=== PATIENT | male | born 1940 | race Caucasian/White ===

== ENCOUNTER → 2016-12-04 | Outpatient (CLI) | payer MEDICARE, OTHER ==
[2016-12-04 11:10] LABS: ANION GAP 9 (5-19); BLOOD UREA NITROGEN 16 mg/dL (7-20); CALCIUM 9.6 mg/dL (8.4-10.2); CARBON DIOXIDE 33 mmol/L (22-30); CHLORIDE 101 mmol/L (98-107); CHOLESTEROL 138.96 mg/dL (0-200); Direct HDL 56 mg/dL (>40); GLUCOSE 90 mg/dL (75-110); MAGNESIUM 2.1 mg/dL (1.6-2.3); SODIUM 143.1 mmol/L (137-145); TRIGLYCERIDES 76 mg/dL (<150)
[2016-12-04 11:21] LABS: DIRECT LDL 59 mg/dL (<100)
== END ==
LOC: OD 09:35
PROVIDERS: ATTEND Internal Medicine Cardiovascular Disease
DX: E78.00 Pure hypercholesterolemia, unspecified (principal); R73.01 Impaired fasting glucose; Z79.899 Other long term (current) drug therapy
CPT/HCPCS: 36415; 80048; 80061; 83036; 83735

== ENCOUNTER → 2017-09-18 | Outpatient (CLI) | payer MEDICARE, OTHER ==
[2017-09-18 14:29] LABS: ALANINE AMINOTRANSFERASE 34 U/L (21-72); ALBUMIN 3.8 g/dL (3.5-5.0); ALKALINE PHOSPHATASE 65 U/L (38-126); ANION GAP 13 (5-19); ASPARTATE AMINO TRANSFERASE 29 U/L (17-59); BILIRUBIN,DIRECT 0.4 mg/dL (0.0-0.4); BILIRUBIN,TOTAL 1.4 mg/dL (0.2-1.3); BLOOD UREA NITROGEN 16 mg/dL (7-20); CALCIUM 9.8 mg/dL (8.4-10.2); CARBON DIOXIDE 29 mmol/L (22-30); CHLORIDE 100 mmol/L (98-107); CHOLESTEROL 142.02 mg/dL (0-200); GLUCOSE 67 mg/dL (75-110); MAGNESIUM 2.1 mg/dL (1.6-2.3); POTASSIUM 4.3 mmol/L (3.6-5.0); SODIUM 141.9 mmol/L (137-145); TOTAL PROTEIN 6.1 g/dL (6.3-8.2); TRIGLYCERIDES 88 mg/dL (<150)
[2017-09-18 14:39] LABS: DIRECT LDL 82 mg/dL (<100)
== END ==
LOC: OD 12:38
PROVIDERS: ATTEND Internal Medicine Cardiovascular Disease
DX: E78.00 Pure hypercholesterolemia, unspecified (principal); Z79.899 Other long term (current) drug therapy
CPT/HCPCS: 36415; 80048; 80061; 80076; 83036; 83735

== ENCOUNTER 2017-12-13 07:15 | Inpatient (IN) | payer MEDICARE, OTHER ==
[2017-12-13 07:39] LABS: ABSOLUTE BASOPHILS # (AUTO) 0.1 10^3/uL (0.0-0.2); ABSOLUTE EOSINOPHILS # (AUTO) 0.1 10^3/uL (0.0-0.6); ABSOLUTE LYMPHOCYTES (AUTO) 1.8 10^3/uL (0.5-4.7); ABSOLUTE MONOCYTES (AUTO) 0.4 10^3/uL (0.1-1.4); BASOPHILS % (AUTO) 0.6 % (0-2); EOSINOPHILS % (AUTO) 0.9 % (0-6); HEMATOCRIT 42.8 % (37.9-51.0); HEMOGLOBIN 13.7 g/dL (13.5-17.0); LYMPHOCYTES % (AUTO) 14.6 % (13-45); MEAN CORPUSCULAR HGB CONC 32.1 g/dL (32.0-36.0); MEAN CORPUSCULAR VOLUME 87 fl (80-97); MONOCYTES % (AUTO) 3.2 % (3-13); PLATELET COUNT 235 10^3/uL (150-450); RED BLOOD COUNT 4.92 10^6/uL (4.35-5.55); RED CELL DISTRIBUTION WIDTH 14.4 % (11.5-14.0); SEGMENTED NEUTROPHILS % (AUTO) 80.7 % (42-78); TOTAL CELLS COUNTED % (AUTO) 100 %; WHITE BLOOD COUNT 12.4 10^3/uL (4.0-10.5)
[2017-12-13] MEDS ORDERED: IPRATROPIUM/ALBUTEROL 0.5-2.5 MG/3 ML AMPUL NEB ONE ×2 (07:50→07:54)
[2017-12-13] MEDS ORDERED: LORAZEPAM INJ 2 MG/1 ML VIAL IV ONE (07:52)
--- NOTE | 2017-12-13 07:52 | ER Document Report ---
ED General - General Chief Complaint: Breathing Difficulty Stated Complaint: SHORTNESS OF BREATH Time Seen by Provider: 12/13/17 07:25 Mode of Arrival: Medic Information source: Patient, ON LICENSE OF [facility] Records Notes: 77-year-old male history of CHF COPD presents with complaints of shortness of breath worsening over the past few days. Patient denies any productivity to cough notes he has had multiple similar episodes in the past. Patient found by EMS satting 86% on room air shaking wheezing. Patient was given 2 DuoNeb's 125 mg Solu-Medrol TRAVEL OUTSIDE OF THE [place] IN LAST 30 DAYS: No - HPI Onset: Other Onset/Duration: Persistent, Worse Quality of pain: No pain Severity: Severe Pain Level: Denies Associated symptoms: Nonproductive cough, Shortness of breath Exacerbated by: Coughing, Deep breathing Relieved by: Denies Similar symptoms previously: Yes Recently seen / treated by doctor: Yes - Related Data Allergies/Adverse Reactions: No Known Allergies Allergy (Verified 12/13/17 07:44) Past Medical History - Social History Smoking Status: Former Smoker Cigarette use (# per day): No Chew tobacco use (# tins/day): No Smoking Education Provided: No Frequency of alcohol use: Rare Drug Abuse: None Family History: COPD Patient has suicidal ideation: No Patient has homicidal ideation: No - Past Medical History Cardiac Medical History: Reports: Hx Congestive Heart Failure, Hx Coronary Artery Disease, Hx Heart Attack, Hx Hypercholesterolemia, Hx Hypertension Pulmonary Medical History: Reports: Hx COPD, Hx Respiratory Failure - Half a liter continuously Denies: Hx Tuberculosis Renal/ Medical History: Denies: Hx Peritoneal Dialysis GI Medical History: Reports: Hx Gastroesophageal Reflux Disease, Hx Hiatal Hernia Psychiatric Medical History: Denies: Hx Depression Past Surgical History: Reports: Hx Coronary Artery Bypass Graft, Hx Orthopedic Surgery - 3 ruptured herniated disc in low back and 2 surgeries - Immunizations Immunizations up to date: Yes Hx Diphtheria, Pertussis, Tetanus Vaccination: No Hx Pneumococcal Vaccination: 06/08/16 Review of Systems - Review of Systems Notes: REVIEW OF SYSTEMS: CONSTITUTIONAL : Denies fever, chills, or sweats. Denies recent illness. EENT: Denies eye, ear, throat, or mouth pain or symptoms. Denies nasal or sinus congestion or discharge. Denies throat, tongue, or mouth swelling or difficulty swallowing. CARDIOVASCULAR: Denies chest pain. Denies palpitations or racing or irregular heart beat. Denies ankle edema. RESPIRATORY: Admits shortness of breath difficulty GASTROINTESTINAL: Denies abdominal pain or distention. Denies nausea, vomiting , or diarrhea. Denies blood in vomitus, stools, or per rectum. Denies black, tarry stools. Denies constipation. GENITOURINARY: Denies difficulty urinating, painful urination, burning, frequency, blood in urine, or discharge. MUSCULOSKELETAL: Denies back or neck pain or stiffness. Denies joint pain or swelling. SKIN: Denies rash, lesions or sores. HEMATOLOGIC : Denies easy bruising or bleeding. LYMPHATIC: Denies swollen, enlarged glands. NEUROLOGICAL: Denies confusion or altered mental status. Denies passing out or loss of consciousness. Denies dizziness or lightheadedness. Denies headache. Denies weakness or paralysis or loss of use of either side. Denies problems with gait or speech. Denies sensory loss, numbness, or tingling. Denies seizures. PSYCHIATRIC: Denies anxiety or stress. Denies depression, suicidal ideation, or homicidal ideation. ALL OTHER SYSTEMS REVIEWED AND NEGATIVE. Dictation was performed using [employer] voice recognition software PHYSICAL EXAMINATION: GENERAL: Well-appearing, well-nourished and in significant respiratory distress HEAD: Atraumatic, normocephalic. EYES: Pupils equal round and reactive to light, extraocular movements intact, sclera anicteric, conjunctiva are normal. ENT: Nares patent, oropharynx clear without exudates. Moist mucous membranes. NECK: Normal range of motion, supple without lymphadenopathy LUNGS: Extremely tachypneic HEART: Tachycardic ABDOMEN: Soft, nontender, nondistended abdomen. No guarding, no rebound. No masses appreciated. Musculoskeletal: +1 pitting edema lower extremities NEUROLOGICAL: Cranial nerves grossly intact. Normal speech, normal gait. Normal sensory, motor exams PSYCH: Normal mood, normal affect. SKIN: Warm, Dry, normal turgor, no rashes or lesions noted. Physical Exam - Vital signs Vitals: Resp Pulse Ox 47 H 91 L 12/13/17 07:19 12/13/17 07:19 Course - Re-evaluation Re-evalutation: 12/13/17 07:54 Duo nebs ordered, patient will be given Ativan for initiating, BiPAP immediately ordered, have high suspicion for respiratory failure 12/13/17 08:53 Patient's imaging presentation is most consistent with bilateral pneumonias, he will be started on antibiotics, ABG is pending still, patient looks much better on the BiPAP, and will be left on such. Patient will be admitted to the hospitalist service to the IMCU - Vital Signs Vital signs: Temp Pulse Resp BP Pulse Ox 98.1 F 40 H 117/95 H 98 12/13/17 07:43 12/13/17 08:00 12/13/17 08:00 12/13/17 08:00 - Laboratory Result Diagrams: 12/13/17 07:24 12/13/17 07:24 Laboratory results interpreted by me: 12/13/17 12/13/17 07:24 07:24 WBC 12.4 H RDW 14.4 H Seg Neutrophils % 80.7 H Absolute Neutrophils 10.0 H Carbon Dioxide 36 H Creatine Kinase 27 L - Diagnostic Test Radiology reviewed: Image reviewed - Bilateral lower lobe pneumonia, Reports reviewed - EKG Interpretation by Me EKG shows normal: Nichols, Intervals, QRS Complexes Rate: Tachycardia When compared to previous EKG there are: Changes noted - Patient is more tachycardic now than he was on prior EKG Critical Care Note - Critical Care Note Total time excluding time spent on procedures (mins): 39 Comments: 39 minutes of critical care time spent in direct contact evaluating and reevaluating the patient, treating symptoms, reviewing labs and studies and speaking with consultants excluding any procedures Discharge - Discharge Clinical Impression: Acute exacerbation of chronic obstructive pulmonary disease (COPD) Pneumonia Qualifiers: Pneumonia type: due to unspecified organism Laterality: bilateral Lung location : lower lobe of lung Qualified Code(s): J18.1 - Lobar pneumonia, unspecified organism Acute and chronic respiratory failure Qualifiers: Respiratory failure complication: hypoxia and hypercapnia Qualified Code(s): J96.21 - Acute and chronic respiratory failure with hypoxia; J96.22 - Acute and chronic respiratory failure with hypercapnia; J96.22 - Acute and chronic respiratory failure with hypercapnia; J96.22 - Acute and chronic respiratory failure with hypercapnia Condition: Stable Disposition: ADMITTED INPATIENT Admitting Provider: Hospitalist Unit Admitted: [facility] Referrals: KALEN JEAN-BAPTISTE DO [Primary Care Provider] - Follow up as needed
[2017-12-13 07:57] LABS: ALANINE AMINOTRANSFERASE 33 U/L (21-72); ALKALINE PHOSPHATASE 70 U/L (38-126); ANION GAP 8 (5-19); ASPARTATE AMINO TRANSFERASE 25 U/L (17-59); BLOOD UREA NITROGEN 19 mg/dL (7-20); CALCIUM 9.6 mg/dL (8.4-10.2); CARBON DIOXIDE 36 mmol/L (22-30); CHLORIDE 100 mmol/L (98-107); GLUCOSE 108 mg/dL (75-110); POTASSIUM 4.1 mmol/L (3.6-5.0); SODIUM 143.5 mmol/L (137-145)
[2017-12-13 07:58] LABS: BILIRUBIN,DIRECT 0.2 mg/dL (0.0-0.4); CREATINE KINASE 27 U/L (55-170); TOTAL PROTEIN 6.3 g/dL (6.3-8.2)
[2017-12-13] MEDS: MAGNESIUM SULFATE/D5W 1 GM/100 ML RTUPB IV SCH ×2 (08:00→08:01)
[2017-12-13 08:09] LABS: CREATINE KINASE MB 0.55 ng/mL (<4.55); NT PRO BNP 257 pg/mL (<450)
[2017-12-13 08:10] LABS: TROPONIN I < 0.012 ng/mL
--- NOTE | 2017-12-13 08:28 | RADIOLOGY REPORT (SQ) ---
EXAM DESCRIPTION: CHEST SINGLE VIEW COMPLETED DATE/TIME: 12/13/2017 8:08 am REASON FOR STUDY: sob COMPARISON: 06/26/2016 NUMBER OF VIEWS: One view. TECHNIQUE: Single frontal radiographic image of the chest acquired. LIMITATIONS: None. FINDINGS: LUNGS AND PLEURA: Segmental airspace disease in the right lower lobe and middle lobe. 3 c m oval density in the mid left lung could represent fluid in the fissure, mass, or pneumonia. MEDIASTINUM AND HEART: Stable heart size and mediastinal structures. BONY STRUCTURES: No acute findings. HARDWARE: None. OTHER: No other significant finding. IMPRESSION: Bilateral pneumonia. Followup to resolution is recommended. TECHNICAL DOCUMENTATION: JOB ID: [id number] Reading location - IP/workstation name: [email or web address]
[2017-12-13] MEDS ORDERED: LEVOFLOXACIN 750 MG/D5W RTU 750 MG/150 ML RTUPB IV ONE (08:42)
[2017-12-13] MEDS ORDERED: MAGNESIUM HYDROXIDE SUSP 30 ML UDCUP PO PRN (09:17)
[2017-12-13] MEDS ORDERED: ACETAMINOPHEN 325 MG TABLET PO PRN (09:17)
[2017-12-13] MEDS ORDERED: ONDANSETRON HCL INJ/PF 4 MG/2 ML SDV IV PRN (09:17)
[2017-12-13] MEDS ORDERED: OXYCODONE-ACETAMINOPHEN 5-325 MG TABLET PO PRN (09:17)
--- NOTE | 2017-12-13 09:56 | PDOC H&P ---
History of Present Illness Admission Date/PCP: 12/13/17 08:52 KALEN JEAN-BAPTISTE DO Patient complains of: Shortness of breath History of Present Illness: BERYL ENNIS is a 77 year old male with O2 dep COPD who presented to the emergency department via EMS with shortness of breath for several days. Per EMS his O2 saturation was 86% on room air. When he arrived to the ED he was shaking, and wheezing. Apparently he was tachypneic and tachycardic to the point that he was placed on BiPAP. Consequently, his heart rate improved as well as his respiratory rate. His only complaint now is that he wants to sleep. He says he has not slept in about 2 days. He did not report chest pain or palpitations. Past Medical History Cardiac Medical History: Reports: Congestive Heart Failure, Coronary Artery Disease, Myocardial Infarction, Hyperlipidema, Hypertension Pulmonary Medical History: Reports: Chronic Obstructive Pulmonary Disease (COPD) , Respiratory Failure - Half a liter continuously Denies: Tuberculosis GI Medical History: Reports: Gastroesophageal Reflux Disease, Hiatal Hernia Psychiatric Medical History: Denies: Depression Past Surgical History Past Surgical History: Reports: Coronary Artery Bypass Graft, Orthopedic Surgery - 3 ruptured herniated disc in low back and 2 surgeries Social History Smoking Status: Former Smoker Frequency of Alcohol Use: Occasional Hx Recreational Drug Use: No Drugs: None Hx Prescription Drug Abuse: No - Advance Directive Resuscitation Status: Full Code Family History Family History: COPD Parental Family History Reviewed: No Children Family History Reviewed: No Sibling(s) Family History Reviewed.: No Medication/Allergy Home Medications: Aspirin [Aspirin 81 mg Chewable Tablet] 81 mg PO DAILY 07/06/12 Atorvastatin Calcium [Lipitor 40 mg Tablet] 40 mg PO QHS 03/08/14 Budesonide [Pulmicort Neb 0.5 mg/2 ml Ampul] 0.5 mg NEB RTQ12 #60 ampul.neb Ezetimibe [Zetia 10 mg Tablet] 10 mg PO QHS 10/08/15 Ipratropium [place] [Atrovent 0.02% Neb 0.5 mg/2.5 ml Ampul] 0.5 mg NEB RTQ4 vial.neb 10/20/15 Doxazosin Mesylate 4 mg PO DAILY 06/26/16 Levalbuterol HCl [Xopenex Neb 1.25 mg/3 ml Ampul] 1.25 mg NEB RTQ6 06/26/16 Telmisartan [Micardis 20 mg Tablet] 20 mg PO DAILY 06/26/16 Guaifenesin [Mucinex Sr 600 mg Tablet.sa] 600 mg PO Q12HP PRN #20 tablet.sa Levofloxacin [Levaquin 750 mg Tablet] 750 mg PO DAILY #4 tablet 06/28/16 Omeprazole 40 mg PO BIDACBS #60 capsule. 06/28/16 Prednisone [Deltasone 20 mg Tablet] 40 mg PO ASDIR #21 tablet 06/28/16 Allergies/Adverse Reactions: No Known Allergies Allergy (Verified 12/13/17 07:44) Review of Systems Constitutional: ABSENT: chills, fever(s) Cardiovascular: PRESENT: dyspnea on exertion. ABSENT: chest pain, edema, orthropnea, palpitations Respiratory: PRESENT: dyspnea. ABSENT: hemoptysis, sputum Gastrointestinal: ABSENT: abdominal pain, constipation, diarrhea, hematemesis, hematochezia, nausea, vomiting Neurological: ABSENT: abnormal gait, abnormal speech, confusion, dizziness, focal weakness, syncope Physical Exam Vital Signs: Temp Pulse Resp BP Pulse Ox 98.1 F 40 H 117/95 H 98 12/13/17 07:43 12/13/17 08:00 12/13/17 08:00 12/13/17 08:00 General appearance: PRESENT: mild distress, obese, other - Wearing BiPAP Head exam: PRESENT: atraumatic, normocephalic Eye exam: PRESENT: EOMI, PERRLA Respiratory exam: PRESENT: crackles, decreased breath sounds, unlabored. ABSENT : accessory muscle use, tachypnea Cardiovascular exam: PRESENT: RRR. ABSENT: diastolic murmur, rubs, systolic murmur GI/Abdominal exam: PRESENT: normal bowel sounds, soft. ABSENT: distended, guarding, mass, organolmegaly, rebound, tenderness Neurological exam: PRESENT: alert, awake, oriented to person, oriented to place , oriented to time, oriented to situation, CN II-XII grossly intact. ABSENT: motor sensory deficit Skin exam: PRESENT: dry, intact, warm. ABSENT: cyanosis, rash Results Impressions: Chest X-Ray 12/13/17 07:25 IMPRESSION: Bilateral pneumonia. Followup to resolution is recommended. Assessment & Plan - Diagnosis (1) Acute and chronic respiratory failure Qualifiers: Respiratory failure complication: hypoxia Qualified Code(s): J96.21 - Acute and chronic respiratory failure with hypoxia Is this a current diagnosis for this admission?: Yes Plan: Secondary to COPD exacerbation + pneumonia. Continue BiPAP for now. Check ABG. Pulmonary consult. He sees Dr Vivar. IV steroids, and inhaled bronchodilators. Continue antibiotics as well. (2) Acute exacerbation of chronic obstructive pulmonary disease (COPD) Is this a current diagnosis for this admission?: Yes Plan: see above (3) Coronary artery disease Qualifiers: Coronary Disease-Associated Artery/Lesion type: [place] artery [place] vs. transplanted heart: [place] heart Associated angina: without angina Qualified Code(s): I25.10 - Atherosclerotic heart disease of [place] coronary artery without angina pectoris Is this a current diagnosis for this admission?: Yes Plan: Stable. Continue to monitor. (4) Dysphagia, oropharyngeal phase Is this a current diagnosis for this admission?: Yes Plan: Aspiration precautions. Speech eval. (5) Full code status Is this a current diagnosis for this admission?: Yes (6) Hiatal hernia with GERD Is this a current diagnosis for this admission?: Yes Plan: Continue PPI - Time Time Spent: 50 to 70 Minutes Medications reviewed and adjusted accordingly: Yes Anticipated discharge: Home Within: within 72 hours - Inpatient Certification Based on my medical assessment, after consideration of the patient's comorbidities, presenting symptoms, or acuity I expect that the services needed warrant INPATIENT care.: Yes I certify that my determination is in accordance with my understanding of Medicare's requirements for reasonable and necessary INPATIENT services [42 CFR 412.3e].: Yes Medical Necessity: Need Close Monitoring Due to Risk of Patient Decompensation
[2017-12-13] MEDS ORDERED: CEFTRIAXONE 1 GM/D5W RTU 1 GM/50 ML RTUPB IV SCH (10:00)
[2017-12-13] MEDS ORDERED: AZITHROMYCIN 250 MG TABLET PO ONE (10:00)
--- NOTE | 2017-12-13 10:11 | EKG REPORT ---
SEVERITY:- ABNORMAL ECG - SINUS TACHYCARDIA BASELINE ARTIFACTS NOTED PROBABLE INFERIOR INFARCT, AGE INDETERMINATE : Confirmed by: Yocasta Camacho 13-Dec-2017 10:10:44
[2017-12-13] MEDS ORDERED: LANSOPRAZOLE 30 MG TAB.RAP.DR PO ONE (10:30)
[2017-12-13 11:09] LABS: ARTERIAL BLOOD BASE EXCESS 4.4 mmol/L; ARTERIAL BLOOD FIO2 60%; ARTERIAL BLOOD H2CO3 1.28 mmol/L (1.05-1.35); ARTERIAL BLOOD HCO3 28.9 mmol/L (20-26); ARTERIAL BLOOD O2 SATURATION 99.3 % (94-98); ARTERIAL BLOOD PCO2 42.6 mmHg (35-45); ARTERIAL BLOOD PH 7.45 (7.35-7.45); ARTERIAL BLOOD PO2 186.9 mmHg (80-100); ARTERIAL BLOOD TOTAL CO2 30.3 mmol/L (23-27)
[2017-12-13] MEDS: NORMAL SALINE 1000 ML 1,000 ML IV PRN (12:09)
[2017-12-13] MEDS: IPRATROPIUM/ALBUTEROL 0.5-2.5 MG/3 ML AMPUL NEB SCH ×3 (12:17→20:29)
[2017-12-13] MEDS: ENOXAPARIN SODIUM INJ 40 MG/0.4 ML DISP.SYRIN SUBCUT SCH (12:23)
[2017-12-13] MEDS: CEFTRIAXONE SODIUM 1,000 MG in NORMAL SALINE 100 ML IV SCH (12:24)
[2017-12-13] MEDS: DOCUSATE SODIUM 100 MG CAPSULE PO SCH ×2 (12:25→17:53)
[2017-12-13] MEDS ORDERED: METHYLPREDNISOLONE INJ 40 MG/1 ML SDV IV SCH ×2 (14:00)
[2017-12-13] MEDS ORDERED: METHYLPREDNISOLONE INJ 125 MG/2 ML SDV IV ONE (15:00)
[2017-12-13] MEDS: TAMSULOSIN HCL 0.4 MG CAP.SR.24H PO SCH (17:53)
--- NOTE | 2017-12-13 19:19 | PDOC CONSULTATION ---
Consultation Consult Date: 12/13/17 Attending physician:: CHASE MARIA Consult reason:: acute/chronic resp failure History of Present Illness Admission Date/PCP: 12/13/17 08:52 KALEN JEAN-BAPTISTE DO History of Present Illness: BERYL ENNIS is a 77 year old male with steroid dependent,O2 dep COPD who presented to the emergency department via EMS with shortness of breath for several days. Per EMS his O2 saturation was 86% on room air. When he arrived to the ED he was shaking, and wheezing. Apparently he was tachypneic and tachycardic to the point that he was placed on BiPAP. Consequently, his heart rate improved as well as his respiratory rate. His only complaint now is that he wants to sleep. He says he has not slept in about 2 days.He is well known to [facility] service has >80 py hx and occasionally attempts to smoke ;hh has history of non compliance.He states this exacerbation began with a lot of indigestion and heartburn Past Medical History Cardiac Medical History: Reports: Congestive Heart Failure, Coronary Artery Disease, Myocardial Infarction, Hyperlipidema, Hypertension Pulmonary Medical History: Reports: Chronic Obstructive Pulmonary Disease (COPD) , Respiratory Failure - Half a liter continuously Denies: Tuberculosis GI Medical History: Reports: Gastroesophageal Reflux Disease, Hiatal Hernia Psychiatric Medical History: Denies: Depression Past Surgical History Past Surgical History: Reports: Coronary Artery Bypass Graft, Orthopedic Surgery - 3 ruptured herniated disc in low back and 2 surgeries Social History Information Source: Patient, DrElsa Fox, [facility] Records Smoking Status: Former Smoker Cigarettes Packs Per Day: 2 Number of Years Smokin Passive smoke exposure as: Both Frequency of Alcohol Use: Occasional Hx Recreational Drug Use: No Drugs: None Hx Prescription Drug Abuse: No Do you have pets?: Yes Have you been exposed to any sick contacts recently?: No Have you had any recent respiratory illnesses?: No - Advance Directive Resuscitation Status: Full Code Family History Family History: COPD Parental Family History Reviewed: Yes Children Family History Reviewed: Yes Sibling(s) Family History Reviewed.: Yes Medication/Allergy Home Medications: Aspirin [Aspirin 81 mg Chewable Tablet] 81 mg PO DAILY 07/06/12 Atorvastatin Calcium [Lipitor 40 mg Tablet] 40 mg PO QHS 03/08/14 Budesonide [Pulmicort Neb 0.5 mg/2 ml Ampul] 0.5 mg NEB RTQ12 #60 ampul.[facility] Ezetimibe [Zetia 10 mg Tablet] 10 mg PO QHS 10/08/15 Ipratropium [place] [Atrovent 0.02% Neb 0.5 mg/2.5 ml Ampul] 0.5 mg NEB RTQ4 vial.[facility] 10/20/15 Telmisartan [Micardis 20 mg Tablet] 20 mg PO DAILY 06/26/16 Carvedilol Phosphate [Coreg CR 20 mg Ext. Release Capsule] 20 mg PO DAILY Finasteride [Proscar 5 mg Tablet] 5 mg PO DAILY 12/13/17 Hydrochlorothiazide [Hydrodiuril 25 mg Tablet] 25 mg PO QAM 12/13/17 Omeprazole 40 mg PO DAILY 12/13/17 Prednisone [Deltasone 5 mg Tablet] 10 mg PO DAILY 12/13/17 Tamsulosin HCl [Flomax 0.4 mg Cap.sr] 0.4 mg PO BID 12/13/17 Tolterodine Tartrate [Detrol La] 4 mg PO DAILY 12/13/17 Allergies/Adverse Reactions: No Known Allergies Allergy (Verified 12/13/17 07:44) Review of Systems Constitutional: PRESENT: chills, weakness. ABSENT: anorexia, fatigue, fever(s) , headache(s), night sweats Cardiovascular: ABSENT: edema, orthropnea, palpitations Respiratory: PRESENT: cough. ABSENT: hemoptysis Gastrointestinal: PRESENT: dysphagia, heartburn. ABSENT: abdominal pain, bloating, coffee ground emesis, hematemesis, hematochezia, melena Genitourinary: ABSENT: dysuria, hematuria Musculoskeletal: ABSENT: joint swelling Integumentary: ABSENT: pruritus, rash Neurological: ABSENT: abnormal gait, abnormal movements, abnormal speech, confusion, focal weakness, frequent falls, lack of coordination, memory loss Psychiatric: ABSENT: homidical ideation, suicidal ideation Endocrine: ABSENT: cold intolerance, flushing, heat intolerance, polydipsia, polyuria Hematologic/Lymphatic: PRESENT: easy bruising Physical Exam Vital Signs: Temp Pulse Resp BP Pulse Ox 98.1 F 26 H 115/59 L 100 12/13/17 07:43 12/13/17 09:01 12/13/17 09:01 12/13/17 09:01 General appearance: PRESENT: cooperative, disheveled Head exam: PRESENT: atraumatic, normocephalic Eye exam: PRESENT: conjunctiva pale, EOMI. ABSENT: nystagmus, periorbital swelling, scleral icterus Mouth exam: PRESENT: moist, neck supple, tongue midline Neck exam: ABSENT: carotid bruit, JVD, lymphadenopathy, thyromegaly, tracheal deviation, tracheostomy Respiratory exam: PRESENT: decreased breath sounds, prolonged expiratory phas, rhonchi, symmetrical, unlabored, wheezes. ABSENT: rales, retraction, stridor, tachypnea Cardiovascular exam: PRESENT: RRR, +S1, +S2 Pulses: PRESENT: normal radial pulses GI/Abdominal exam: PRESENT: diminished bowel sounds, soft Extremities exam: ABSENT: clubbing, joint swelling Musculoskeletal exam: PRESENT: deformity, dislocation Neurological exam: PRESENT: alert, awake Psychiatric exam: PRESENT: normal mood Skin exam: PRESENT: dry, warm Results Impressions: Chest X-Ray 12/13/17 07:25 IMPRESSION: Bilateral pneumonia. Followup to resolution is recommended. Assessment & Plan - Diagnosis (1) Acute and chronic respiratory failure Qualifiers: Respiratory failure complication: hypoxia Qualified Code(s): J96.21 - Acute and chronic respiratory failure with hypoxia Is this a current diagnosis for this admission?: Yes Plan: o2 dependent also steroid dependent will increase systemic sterroids (2) Acute exacerbation of chronic obstructive pulmonary disease (COPD) Is this a current diagnosis for this admission?: Yes Plan: Labs- All tests 24 hr 12/13/17 07:24 WBC 12.4 H Seg Neutrophils % 80.7 H Generic Name Dose Route Start Last Admin Trade Name Freq PRN Reason Stop Dose Admin Albuterol/Ipratropium 3 ml 12/13/17 12:00 12/13/17 16:09 Duoneb 3 Ml Ampul NEB 01/12/18 11:59 3 ml RTQ4 LULA Methylprednisolone Sodium Succinate 125 mg 12/13/17 22:00 Solu-Medrol Inj/Pf 125 Mg/2 Ml Sdv IV 01/12/18 21:59 Q8 LULA add pulmicort (3) Pneumonia Qualifiers: Pneumonia type: due to unspecified organism Laterality: bilateral Lung location: lower lobe of lung Qualified Code(s): J18.1 - Lobar pneumonia, unspecified organism Is this a current diagnosis for this admission?: Yes (4) Hiatal hernia with GERD Is this a current diagnosis for this admission?: Yes Plan: keep in reverse trendelenberg
[2017-12-13 20:40] LABS: APPEARANCE,URINE CLEAR; BILIRUBIN,URINE NEGATIVE (NEGATIVE); COLOR,URINE YELLOW; GLUCOSE, URINE 50 mg/dL (NEGATIVE); KETONES,URINE NEGATIVE (NEGATIVE); LEUKOCYTE ESTERASE,URINE NEGATIVE (NEGATIVE); NITRITE,URINE NEGATIVE (NEGATIVE); PROTEIN,URINE NEGATIVE (NEGATIVE); URINE SPECIFIC GRAVITY 1.006; UROBILINOGEN,URINE NEGATIVE mg/dL (<2.0)
[2017-12-13] MEDS: METHYLPREDNISOLONE INJ 125 MG/2 ML SDV IV SCH (21:59)
[2017-12-13] MEDS: ATORVASTATIN CALCIUM 40 MG TABLET PO SCH (21:59)
[2017-12-13] MEDS: EZETIMIBE 10 MG TABLET PO SCH (21:59)
[2017-12-14] MEDS: IPRATROPIUM/ALBUTEROL 0.5-2.5 MG/3 ML AMPUL NEB SCH ×6 (00:43→20:04)
[2017-12-14] MEDS: NORMAL SALINE 1000 ML 1,000 ML IV PRN (01:38)
[2017-12-14 05:11] LABS: ARTERIAL BLOOD BASE EXCESS 4.4 mmol/L; ARTERIAL BLOOD FIO2 24%; ARTERIAL BLOOD H2CO3 1.34 mmol/L (1.05-1.35); ARTERIAL BLOOD HCO3 29.3 mmol/L (20-26); ARTERIAL BLOOD O2 SATURATION 94.9 % (94-98); ARTERIAL BLOOD PCO2 44.6 mmHg (35-45); ARTERIAL BLOOD PH 7.44 (7.35-7.45); ARTERIAL BLOOD PO2 72.1 mmHg (80-100); ARTERIAL BLOOD TOTAL CO2 30.6 mmol/L (23-27)
[2017-12-14] MEDS: METHYLPREDNISOLONE INJ 125 MG/2 ML SDV IV SCH ×3 (05:18→22:15)
[2017-12-14] MEDS: LANSOPRAZOLE 30 MG TAB.RAP.DR PO SCH (05:19)
[2017-12-14 05:36] LABS: HEMATOCRIT 36.5 % (37.9-51.0); HEMOGLOBIN 11.8 g/dL (13.5-17.0); MEAN CORPUSCULAR HEMOGLOBIN 27.9 pg (27.0-33.4); MEAN CORPUSCULAR HGB CONC 32.4 g/dL (32.0-36.0); MEAN CORPUSCULAR VOLUME 86 fl (80-97); PLATELET COUNT 166 10^3/uL (150-450); RED BLOOD COUNT 4.24 10^6/uL (4.35-5.55); RED CELL DISTRIBUTION WIDTH 14.3 % (11.5-14.0); WHITE BLOOD COUNT 17.9 10^3/uL (4.0-10.5)
[2017-12-14 05:55] LABS: ANION GAP 7 (5-19); BLOOD UREA NITROGEN 19 mg/dL (7-20); CALCIUM 8.8 mg/dL (8.4-10.2); CARBON DIOXIDE 31 mmol/L (22-30); CHLORIDE 103 mmol/L (98-107); GLUCOSE 126 mg/dL (75-110); PHOSPHORUS 3.4 mg/dL (2.5-4.5); POTASSIUM 3.6 mmol/L (3.6-5.0); SODIUM 141.4 mmol/L (137-145)
[2017-12-14] MEDS: ENOXAPARIN SODIUM INJ 40 MG/0.4 ML DISP.SYRIN SUBCUT SCH (09:19)
[2017-12-14] MEDS: AZITHROMYCIN 250 MG TABLET PO SCH (09:20)
[2017-12-14] MEDS: FINASTERIDE 5 MG TABLET PO SCH (09:21)
[2017-12-14] MEDS: DOCUSATE SODIUM 100 MG CAPSULE PO SCH ×2 (09:21→17:47)
[2017-12-14] MEDS: TAMSULOSIN HCL 0.4 MG CAP.SR.24H PO SCH ×2 (09:21→17:46)
[2017-12-14] MEDS: HYDROCHLOROTHIAZIDE 25 MG TABLET PO SCH (09:21)
[2017-12-14] MEDS: ASPIRIN 81 MG TABLET, CHEWABLE PO SCH (09:21)
--- NOTE | 2017-12-14 10:07 | PDOC PROGRESS REPORT ---
Subjective Progress Note for:: 12/14/17 Subjective:: BERYL ENNIS is a 77 year old male with O2 dep COPD who presented to the emergency department via EMS with shortness of breath for several days. Per EMS his O2 saturation was 86% on room air. When he arrived to the ED he was shaking, and wheezing. Apparently he was tachypneic and tachycardic to the point that he was placed on BiPAP. Consequently, his heart rate improved as well as his respiratory rate. He was admitted for acute on chronic respiratory failure with hypoxia d/t COPD exacerbation secondary to bibasilar pneumonia. He was started on antibiotics for CAP. He remained oxygen, and used BiPAP prn. He was seen by Dr Vivar who recommended increasing his systemic steroids. 12/14 Feeling better. Asking to go home. Reason For Visit: ACUTE ON CHRONIC RESPIRATORY FAILURE WITH HYPOXIA Physical Exam Vital Signs: Temp Pulse Resp BP Pulse Ox 97.7 F 82 22 H 106/66 93 12/14/17 07:33 12/14/17 07:33 12/14/17 07:33 12/14/17 07:33 12/14/17 07:33 Pulse Oximeter Continuous Start: 12/13/17 11: 15 Freq: RTQ4 Status: Active Document 12/14/17 04:47 EAL (Rec: 12/14/17 05:23 EAL [email or web address]) Pulse Oximetry Assessment Oxygen Saturation (92-100) 95 Oxygen Flow Rate (L/min) 1 Oxygen Delivery Method Nasal Cannula Fraction of Inspired Oxygen (FIO2) 24 Equipment Usage Equipment in Use Continuous SpO2 Machine # 14 Intake & Output 12/13/17 12/14/17 12/15/17 06:59 06:59 06:59 Intake Total 2290 Output Total 1700 Balance 590 Weight 83.2 kg General appearance: PRESENT: no acute distress, obese Head exam: PRESENT: atraumatic, normocephalic Eye exam: PRESENT: EOMI, PERRLA Neck exam: ABSENT: carotid bruit, JVD, lymphadenopathy, thyromegaly Respiratory exam: PRESENT: decreased breath sounds - at bases, unlabored GI/Abdominal exam: PRESENT: normal bowel sounds, soft. ABSENT: distended, guarding, mass, organolmegaly, rebound, tenderness Musculoskeletal exam: PRESENT: ambulatory Neurological exam: PRESENT: alert, awake, oriented to person, oriented to place , oriented to time, oriented to situation, CN II-XII grossly intact. ABSENT: motor sensory deficit Psychiatric exam: PRESENT: appropriate affect, normal mood. ABSENT: homicidal ideation, suicidal ideation Skin exam: PRESENT: dry, intact, warm. ABSENT: cyanosis, rash Results Laboratory Results: 12/14/17 04:49 12/14/17 04:49 12/13/17 12/13/17 12/14/17 10:38 20:00 04:49 WBC 17.9 H RBC 4.24 L Hgb 11.8 L Hct 36.5 L MCV 86 MCH 27.9 MCHC 32.4 RDW 14.3 H Plt Count 166 Carbonic Acid 1.28 HCO3/H2CO3 Ratio 22:1 ABG pH 7.45 ABG pCO2 42.6 ABG pO2 186.9 H ABG HCO3 28.9 H ABG O2 Saturation 99.3 H ABG Base Excess 4.4 FiO2 60% Sodium Potassium Chloride Carbon Dioxide Anion Gap BUN Creatinine Est GFR ( Amer) Est GFR (Non-Af Amer) Glucose Calcium Phosphorus Magnesium Urine Color YELLOW Urine Appearance CLEAR Urine pH 5.0 Ur Specific Roxie 1.006 Urine Protein NEGATIVE Urine Glucose (UA) 50 H Urine Ketones NEGATIVE Urine Blood SMALL H Urine Nitrite NEGATIVE Ur Leukocyte Esterase NEGATIVE Urine WBC (Auto) 0 Urine RBC (Auto) 1 12/14/17 12/14/17 04:49 05:02 WBC RBC Hgb Hct MCV MCH MCHC RDW Plt Count Carbonic Acid 1.34 HCO3/H2CO3 Ratio 21:1 ABG pH 7.44 ABG pCO2 44.6 ABG pO2 72.1 L ABG HCO3 29.3 H ABG O2 Saturation 94.9 ABG Base Excess 4.4 FiO2 24% Sodium 141.4 Potassium 3.6 Chloride 103 Carbon Dioxide 31 H Anion Gap 7 BUN 19 Creatinine 0.65 Est GFR ( Amer) > 60 Est GFR (Non-Af Amer) > 60 Glucose 126 H Calcium 8.8 Phosphorus 3.4 Magnesium 2.2 Urine Color Urine Appearance Urine pH Ur Specific Roxie Urine Protein Urine Glucose (UA) Urine Ketones Urine Blood Urine Nitrite Ur Leukocyte Esterase Urine WBC (Auto) Urine RBC (Auto) Impressions: Chest X-Ray 12/13/17 07:25 IMPRESSION: Bilateral pneumonia. Followup to resolution is recommended. Assessment & Plan - Diagnosis (1) Acute and chronic respiratory failure Qualifiers: Respiratory failure complication: hypoxia Qualified Code(s): J96.21 - Acute and chronic respiratory failure with hypoxia Is this a current diagnosis for this admission?: Yes Plan: Secondary to COPD exacerbation + pneumonia. Continue BiPAP prn. Oxygen 2L. Steroids per pulmonary. (2) Acute exacerbation of chronic obstructive pulmonary disease (COPD) Is this a current diagnosis for this admission?: Yes Plan: see above (3) Coronary artery disease Qualifiers: Coronary Disease-Associated Artery/Lesion type: [place] artery [place] vs. transplanted heart: [place] heart Associated angina: without angina Qualified Code(s): I25.10 - Atherosclerotic heart disease of [place] coronary artery without angina pectoris Is this a current diagnosis for this admission?: Yes Plan: Stable. Continue to monitor. (4) Dysphagia, oropharyngeal phase Is this a current diagnosis for this admission?: Yes Plan: Aspiration precautions. Speech eval. pending. (5) Full code status Is this a current diagnosis for this admission?: Yes (6) Hiatal hernia with GERD Is this a current diagnosis for this admission?: Yes Plan: Continue PPI (7) Pneumonia Qualifiers: Pneumonia type: due to unspecified organism Laterality: bilateral Lung location: lower lobe of lung Qualified Code(s): J18.1 - Lobar pneumonia, unspecified organism Is this a current diagnosis for this admission?: Yes Plan: clinically doing well. continue antibiotics. I think he would benefit from a speech evaluation. - Time Time Spent with patient: 25-34 minutes Medications reviewed and adjusted accordingly: Yes Anticipated discharge: Home - Inpatient Certification Based on my medical assessment, after consideration of the patient's comorbidities, presenting symptoms, or acuity I expect that the services needed warrant INPATIENT care.: Yes I certify that my determination is in accordance with my understanding of Medicare's requirements for reasonable and necessary INPATIENT services [42 CFR 412.3e].: Yes Medical Necessity: Need for IV Antibiotics
[2017-12-14] MEDS: CEFTRIAXONE SODIUM 1,000 MG in NORMAL SALINE 100 ML IV SCH (12:09)
[2017-12-14] MEDS: EZETIMIBE 10 MG TABLET PO SCH (22:15)
[2017-12-14] MEDS: ATORVASTATIN CALCIUM 40 MG TABLET PO SCH (22:15)
[2017-12-14] MEDS ORDERED: CARVEDILOL 12.5 MG TABLET PO ONE (23:00)
[2017-12-15] MEDS: IPRATROPIUM/ALBUTEROL 0.5-2.5 MG/3 ML AMPUL NEB SCH ×3 (00:45→08:20)
[2017-12-15] MEDS: LANSOPRAZOLE 30 MG TAB.RAP.DR PO SCH (05:32)
[2017-12-15] MEDS: METHYLPREDNISOLONE INJ 125 MG/2 ML SDV IV SCH (05:32)
[2017-12-15 06:17] LABS: HEMOGLOBIN 11.5 g/dL (13.5-17.0); MEAN CORPUSCULAR HEMOGLOBIN 27.7 pg (27.0-33.4); MEAN CORPUSCULAR HGB CONC 32.1 g/dL (32.0-36.0); MEAN CORPUSCULAR VOLUME 86 fl (80-97); PLATELET COUNT 174 10^3/uL (150-450); RED BLOOD COUNT 4.16 10^6/uL (4.35-5.55); RED CELL DISTRIBUTION WIDTH 14.8 % (11.5-14.0); WHITE BLOOD COUNT 15.9 10^3/uL (4.0-10.5)
[2017-12-15 06:43] LABS: ANION GAP 8 (5-19); BLOOD UREA NITROGEN 21 mg/dL (7-20); CALCIUM 8.6 mg/dL (8.4-10.2); CARBON DIOXIDE 33 mmol/L (22-30); CHLORIDE 103 mmol/L (98-107); GLUCOSE 123 mg/dL (75-110); POTASSIUM 3.4 mmol/L (3.6-5.0); SODIUM 143.8 mmol/L (137-145)
[2017-12-15 08:08] VITALS: BP 122/58
[2017-12-15] MEDS: HYDROCHLOROTHIAZIDE 25 MG TABLET PO SCH (08:48)
[2017-12-15] MEDS: ASPIRIN 81 MG TABLET, CHEWABLE PO SCH (09:41)
[2017-12-15] MEDS: TAMSULOSIN HCL 0.4 MG CAP.SR.24H PO SCH (09:42)
[2017-12-15] MEDS: FINASTERIDE 5 MG TABLET PO SCH (09:42)
[2017-12-15] MEDS: AZITHROMYCIN 250 MG TABLET PO SCH (09:42)
[2017-12-15] MEDS: ENOXAPARIN SODIUM INJ 40 MG/0.4 ML DISP.SYRIN SUBCUT SCH (09:43)
[2017-12-15] MEDS: DOCUSATE SODIUM 100 MG CAPSULE PO SCH (09:43)
[2017-12-15] MEDS ORDERED: CARVEDILOL 12.5 MG TABLET PO SCH (10:00)
--- NOTE | 2017-12-15 12:20 | PDOC PROGRESS REPORT ---
Subjective Progress Note for:: 12/15/17 Subjective:: ready to go home Reason For Visit: ACUTE ON CHRONIC RESPIRATORY FAILURE WITH HYPOXIA Physical Exam Vital Signs: Temp Pulse Resp BP Pulse Ox 97.7 F 81 20 122/58 L 95 12/15/17 11:06 12/15/17 11:06 12/15/17 11:06 12/15/17 07:19 12/15/17 11:06 Pulse Oximeter Continuous Start: 12/13/17 11: 15 Freq: RTQ4 Status: Discharge Document 12/15/17 10:11 TPO (Rec: 12/15/17 10:12 TPO [email or web address]) Pulse Oximetry Assessment Equipment Usage Equipment Discontinued Continuous SpO2 Machine # 14 Intake & Output 12/14/17 12/15/17 12/16/17 06:59 06:59 06:59 Intake Total 2290 3962 Output Total 1700 3400 Balance 590 562 Weight 83.2 kg 83.4 kg General appearance: PRESENT: no acute distress, cooperative, well-developed, well-nourished Head exam: PRESENT: atraumatic, normocephalic Eye exam: PRESENT: conjunctiva pale, EOMI. ABSENT: nystagmus, periorbital swelling, scleral icterus Mouth exam: PRESENT: dry mucosa, neck supple, tongue midline Neck exam: ABSENT: carotid bruit, JVD, lymphadenopathy, thyromegaly, tracheal deviation, tracheostomy Pulses: ABSENT: normal radial pulses GI/Abdominal exam: PRESENT: diminished bowel sounds, soft Extremities exam: ABSENT: clubbing, joint swelling Musculoskeletal exam: PRESENT: ambulatory. ABSENT: deformity, dislocation Neurological exam: PRESENT: awake, oriented to person, oriented to place, oriented to time, oriented to situation Skin exam: PRESENT: dry, warm Results Laboratory Results: 12/15/17 05:27 12/15/17 05:27 12/15/17 12/15/17 05:27 05:27 WBC 15.9 H RBC 4.16 L Hgb 11.5 L Hct 36.0 L MCV 86 MCH 27.7 MCHC 32.1 RDW 14.8 H Plt Count 174 Sodium 143.8 Potassium 3.4 L Chloride 103 Carbon Dioxide 33 H Anion Gap 8 BUN 21 H Creatinine 0.73 Est GFR ( Amer) > 60 Est GFR (Non-Af Amer) > 60 Glucose 123 H Calcium 8.6 Impressions: Chest X-Ray 12/13/17 07:25 IMPRESSION: Bilateral pneumonia. Followup to resolution is recommended. Assessment & Plan - Diagnosis (1) Acute and chronic respiratory failure Qualifiers: Respiratory failure complication: hypoxia Qualified Code(s): J96.21 - Acute and chronic respiratory failure with hypoxia Is this a current diagnosis for this admission?: Yes Plan: o2 dependent also steroid dependent will increase systemic sterroids (2) Acute exacerbation of chronic obstructive pulmonary disease (COPD) Is this a current diagnosis for this admission?: Yes Plan: Labs- All tests 24 hr 12/13/17 07:24 WBC 12.4 H Seg Neutrophils % 80.7 H Generic Name Dose Route Start Last Admin Trade Name Freq PRN Reason Stop Dose Admin Albuterol/Ipratropium 3 ml 12/13/17 12:00 12/13/17 16:09 Duoneb 3 Ml Ampul NEB 01/12/18 11:59 3 ml RTQ4 LULA Methylprednisolone Sodium Succinate 125 mg 12/13/17 22:00 Solu-Medrol Inj/Pf 125 Mg/2 Ml Sdv IV 01/12/18 21:59 Q8 LULA add pulmicort (3) Pneumonia Qualifiers: Pneumonia type: due to unspecified organism Laterality: bilateral Lung location: lower lobe of lung Qualified Code(s): J18.1 - Lobar pneumonia, unspecified organism Is this a current diagnosis for this admission?: Yes (4) Hiatal hernia with GERD Is this a current diagnosis for this admission?: Yes Plan: keep in reverse trendelenberg
--- NOTE | 2017-12-15 18:00 | PDOC DISCHARGE SUMMARY ---
General - Admit/Disc Date/PCP Admission Date/Primary Care Provider: 12/13/17 08:52 KALEN JEAN-BAPTISTE, Discharge Date: 12/15/17 - Discharge Diagnosis (1) Acute exacerbation of chronic obstructive pulmonary disease (COPD) Is this a current diagnosis for this admission?: Yes (2) Acute and chronic respiratory failure Is this a current diagnosis for this admission?: Yes (3) Coronary artery disease Is this a current diagnosis for this admission?: Yes (4) Full code status Is this a current diagnosis for this admission?: Yes (5) Hiatal hernia with GERD Is this a current diagnosis for this admission?: Yes - Additional Information Resuscitation Status: Full Code Discharge Diet: As Tolerated Discharge Activity: Activity As Tolerated, Balance Activity w/Rest, Slowly Increase Activity Prescriptions: Acidophilus/Bifido Longum [Lactobacillus Capsule] 1 cap PO BID #30 capsule Amoxicillin/Potassium Clav [Augmentin 875-125 Tablet] 1 each PO BID #20 tablet Famotidine [Pepcid 40 mg Tablet] 40 mg PO DAILY #30 tablet Levofloxacin [Levaquin 750 mg Tablet] 750 mg PO DAILY #10 tablet Prednisone 20 mg PO ASDIR 30 Days #50 tablet Home Medications: Aspirin [Aspirin 81 mg Chewable Tablet] 81 mg PO DAILY 07/06/12 Atorvastatin Calcium [Lipitor 40 mg Tablet] 40 mg PO QHS 03/08/14 Budesonide [Pulmicort Neb 0.5 mg/2 ml Ampul] 0.5 mg NEB RTQ12 #60 ampul.neb Ezetimibe [Zetia 10 mg Tablet] 10 mg PO QHS 10/08/15 Ipratropium [place] [Atrovent 0.02% Neb 0.5 mg/2.5 ml Ampul] 0.5 mg NEB RTQ4 vial.neb 10/20/15 Telmisartan [Micardis 20 mg Tablet] 20 mg PO DAILY 06/26/16 Carvedilol Phosphate [Coreg CR 20 mg Ext. Release Capsule] 20 mg PO DAILY Finasteride [Proscar 5 mg Tablet] 5 mg PO DAILY 12/13/17 Hydrochlorothiazide [Hydrodiuril 25 mg Tablet] 25 mg PO QAM 12/13/17 Omeprazole 40 mg PO DAILY 12/13/17 Tamsulosin HCl [Flomax 0.4 mg Cap.sr] 0.4 mg PO BID 12/13/17 Tolterodine Tartrate [Detrol LA] 4 mg PO DAILY 12/13/17 Acidophilus/Bifido Longum [Lactobacillus Capsule] 1 cap PO BID #30 capsule 12/15 Amoxicillin/Potassium Clav [Augmentin 875-125 Tablet] 1 each PO BID #20 tablet 12/15/17 Famotidine [Pepcid 40 mg Tablet] 40 mg PO DAILY #30 tablet 12/15/17 Levofloxacin [Levaquin 750 mg Tablet] 750 mg PO DAILY #10 tablet 12/15/17 Prednisone 20 mg PO ASDIR 30 Days #50 tablet 12/15/17 History of Present Illness Patient complains of: Shortness of breath History of Present Illness: BERYL ENNIS is a 77 year old male with O2 dep COPD who presented to the emergency department via EMS with shortness of breath for several days. Per EMS his O2 saturation was 86% on room air. When he arrived to the ED he was shaking, and wheezing. Apparently he was tachypneic and tachycardic to the point that he was placed on BiPAP. Consequently, his heart rate improved as well as his respiratory rate. His only complaint now is that he wants to sleep. He says he has not slept in about 2 days. He did not report chest pain or palpitations. Hospital Course Hospital Course: 1 COPD exacerbation and community-acquired pneumonia Patient was treated with IV steroids and nebs ceftriaxone and Zithromax were initiated Patient's a prior medications were continued. His condition improved within 24-48 hrs. And he felt well enough to go home on supplemental O2 He was switched to Levaquin and Augmentin at discharge 2 coronary artery disease Patient did not have any chest pain He remained in a sinus rhythm His initial troponin was 0.012 Physical Exam Vital Signs: Temp Pulse Resp BP Pulse Ox 97.7 F 81 20 122/58 L 95 12/15/17 11:06 12/15/17 11:06 12/15/17 11:06 12/15/17 07:19 12/15/17 11:06 Pulse Oximeter Continuous Start: 12/13/17 11: 15 Freq: RTQ4 Status: Discharge Document 12/15/17 10:11 TPO (Rec: 12/15/17 10:12 TPO [email or web address]) Pulse Oximetry Assessment Equipment Usage Equipment Discontinued Continuous SpO2 Machine # 14 Intake & Output 12/14/17 12/15/17 12/16/17 00:59 00:59 00:59 Intake Total 1425 4427 400 Output Total 1071 2520 1075 Balance 350 1067 -546 Weight 83.2 kg 83.4 kg General appearance: PRESENT: no acute distress Head exam: PRESENT: atraumatic, normocephalic Eye exam: PRESENT: conjunctiva pink, EOMI, PERRLA. ABSENT: scleral icterus Neck exam: ABSENT: carotid bruit, JVD, lymphadenopathy, thyromegaly Respiratory exam: PRESENT: decreased breath sounds, wheezes. ABSENT: accessory muscle use Cardiovascular exam: PRESENT: RRR. ABSENT: diastolic murmur, rubs, systolic murmur GI/Abdominal exam: PRESENT: normal bowel sounds, soft. ABSENT: distended, guarding, mass, organolmegaly, rebound, tenderness Musculoskeletal exam: ABSENT: ambulatory, deformity, dislocation, full ROM, normal inspection, tenderness, other Neurological exam: PRESENT: alert, awake, oriented to person, oriented to place , oriented to time, oriented to situation, CN II-XII grossly intact. ABSENT: motor sensory deficit Skin exam: PRESENT: abrasion Results Laboratory Results: 12/15/17 05:27 12/15/17 05:27 12/15/17 12/15/17 05:27 05:27 WBC 15.9 H RBC 4.16 L Hgb 11.5 L Hct 36.0 L MCV 86 MCH 27.7 MCHC 32.1 RDW 14.8 H Plt Count 174 Sodium 143.8 Potassium 3.4 L Chloride 103 Carbon Dioxide 33 H Anion Gap 8 BUN 21 H Creatinine 0.73 Est GFR ( Amer) > 60 Est GFR (Non-Af Amer) > 60 Glucose 123 H Calcium 8.6 Impressions: Chest X-Ray 12/13/17 07:25 IMPRESSION: Bilateral pneumonia. Followup to resolution is recommended. 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
== END 2017-12-15 11:31 | disposition home or self-care (01) | DRG 189 ==
LOC: ER 07:15 → EH 08:52 → 3W 09:59
PROVIDERS: ADMIT Family Medicine; ATTEND Family Medicine
PROC: 5A09357 Assistance with Respiratory Ventilation, Less than 24 Consecutive Hours, Continuous Positive Airway Pressure (ICD-10-PCS; principal; 2017-12-13)
PROC: 3E0F73Z Introduction of Anti-inflammatory into Respiratory Tract, Via Natural or Artificial Opening (ICD-10-PCS; 2017-12-13)
DX: J96.21 Acute and chronic respiratory failure with hypoxia (principal); J18.1 Lobar pneumonia, unspecified organism; J44.1 Chronic obstructive pulmonary disease with (acute) exacerbation; J44.0 Chronic obstructive pulmonary disease with (acute) lower respiratory infection; J96.22 Acute and chronic respiratory failure with hypercapnia; I25.10 Atherosclerotic heart disease of native coronary artery without angina pectoris; K21.9 Gastro-esophageal reflux disease without esophagitis; K44.9 Diaphragmatic hernia without obstruction or gangrene; I11.0 Hypertensive heart disease with heart failure; I50.9 Heart failure, unspecified; R13.12 Dysphagia, oropharyngeal phase; E78.00 Pure hypercholesterolemia, unspecified; I25.2 Old myocardial infarction; Z99.81 Dependence on supplemental oxygen; Z79.82 Long term (current) use of aspirin; Z79.52 Long term (current) use of systemic steroids; Z79.899 Other long term (current) drug therapy; Z95.1 Presence of aortocoronary bypass graft; Z87.891 Personal history of nicotine dependence; Z83.6 Family history of other diseases of the respiratory system
CPT/HCPCS: 36415; 36600; 71045; 80048; 80053; 81001; 82550; 82553; 82803; 83735; 83880; 84100; 84484; 85025; 85027; 87040; 93005; 93010; 94640; 94660; 94762; 96374; 96375; 96376; 99291; G8978-GP; G8979-GP; J0696; J1650; J1956; J2060; J2930; J3475; J7030; J7620

== ENCOUNTER → 2018-02-03 | Outpatient (CLI) | payer MEDICARE, OTHER ==
--- NOTE | 2018-02-03 14:15 | RADIOLOGY REPORT (SQ) ---
EXAM DESCRIPTION: CT CHEST WITHOUT COMPLETED DATE/TIME: 02/03/2018 12:46 pm REASON FOR STUDY: OTHER NONSPECIFIC ABN FINDING OF LUNG FIELD (R91.8) R91.8 OTHER NONSPECIFIC ABNOR MAL FINDING OF LUNG FIELD COMPARISON: Chest x-ray dated 12/13/2017. Chest CTA dated 06/26/2016. TECHNIQUE: CT scan performed of the chest without intravenous contrast. Images reviewed with lung, soft tissue and bone windows. Reconstructed coronal and sagittal MPR images reviewed. All images st ored on PACS. All CT scanners at this facility use dose modulation, iterative reconstruction, and/or weight based d osing when appropriate to reduce radiation dose to as low as reasonably achievable (ALARA). [facility]: Dose Right [facility]: CareDose [facility]: Dose Right [facility]: Teradose 4D [facility]: [employer] RADIATION DOSE: CT Rad equipment meets quality standard of care and radiation dose reduction techniq ues were employed. CTDIvol: 11.3 mGy. DLP: 440 mGy-cm. mGy. LIMITATIONS: No technical limitations. FINDINGS: LUNGS AND PLEURA: 3.3 cm spiculated mass in the left upper lobe. Lungs are otherwise gene rally clear. No pleural effusion or pleural thickening. HILAR AND MEDIASTINAL STRUCTURES: No identified masses or abnormal nodes. No obvious aneurysm. HEART AND VASCULAR STRUCTURES: No aneurysm. No pericardial effusion. UPPER ABDOMEN: No significant findings. Limited exam. THYROID AND OTHER SOFT TISSUES: No masses. No adenopathy. BONES: No significant finding. HARDWARE: None in the chest. OTHER: No other significant findings. IMPRESSION: 3.3 CM SPICULATED MASS IN THE LEFT UPPER LOBE MOST CONSISTENT WITH MALIGNANCY. TECHNICAL DOCUMENTATION: JOB ID: [id number] Quality ID # [id number]: Final reports with documentation of one or more dose reduction techniques (e.g., Au tomated exposure control, adjustment of the mA and/or kV according to patient size, use of iterative reconstruction technique) 2010 [employer]- All Rights Reserved Reading location - IP/workstation name: [email or web address]
== END ==
LOC: RAD 12:20
PROVIDERS: ATTEND Internal Medicine Pulmonary Disease
DX: R91.8 Other nonspecific abnormal finding of lung field (principal)
CPT/HCPCS: 71250

== ENCOUNTER → 2018-02-08 | Outpatient (CLI) | payer MEDICARE, OTHER ==
--- NOTE | 2018-02-09 11:15 | RADIOLOGY REPORT (SQ) ---
EXAM DESCRIPTION: PET CT SKULL/THIGH COMPLETED DATE/TIME: 02/08/2018 10:01 pm REASON FOR STUDY: LUNG MASS R91.8 OTHER NONSPECIFIC ABNORMAL FINDING OF LUNG FIELD J98.4 OTHER DIS ORDERS OF LUNG COMPARISON: CT chest dated 02/03/2018. RADIONUCLIDE AND DOSE: 10.0 mCi F18 FDG The route of agent administration: Intravenous FASTING BLOOD SUGAR: 69 mg/dl CONTRAST TYPE AND DOSE: No CT contrast given. TECHNIQUE: Blood glucose level was verified. Above dose of FDG was injected intravenously. 2-D seg mented attenuation correction images were obtained from the base of the skull to the midthighs. Nonc ontrast CT images were obtained for attenuation correction and fusion with emission images. CT image s were performed without oral or intravenous contrast and are not sensitive for parenchymal lesions. A series of overlapping emission PET images were obtained. Images reviewed and manipulated at [facility] work station by the radiologist. Images stored on PACS. LIMITATIONS: None. FINDINGS: HEAD AND NECK: No areas of abnormal metabolic activity in the soft tissues of the head and neck. CHEST: 3.1 cm spiculated mass in the left upper lobe. Mean SUV 8.18. Small lymph node in the left h ilum, difficult to visualize without contrast, probably measuring approximately 1 cm. Mean SUV 8.65. ABDOMEN AND PELVIS: No areas of abnormal metabolic activity in the abdomen or pelvis. Expected physi ologic activity is present in the genitourinary system and bowel. PROXIMAL LOWER EXTREMITIES: No areas of abnormal metabolic activity in the soft tissues of the lower extremities. BONES: Focal area of increased activity in the anterior T9 vertebra. This is at the disc level with anterior osteophyte. Mean SUV 5.69. ADDITIONAL CT FINDINGS: Gallstone. Bilateral aortoiliac bypass graft. No additional significant fin dings on the noncontrast CT images. OTHER: No other significant findings. IMPRESSION: 1. 3.1 CM SPICULATED MASS IN THE LEFT UPPER LOBE WITH INCREASED METABOLIC ACTIVITY CONSISTENT WITH MA LIGNANCY. THERE IS ALSO A SMALL LYMPH NODE IN THE LEFT HILUM WITH INCREASED ACTIVITY CONSISTENT WITH METASTASIS. 2. FOCAL AREA OF INCREASED ACTIVITY IN THE ANTERIOR T9 VERTEBRA. THIS IS AT THE DISC LEVEL WITH ANTE RIOR OSTEOPHYTE. THIS IS CONCERNING FOR A METASTATIC LESION ALTHOUGH DEGENERATIVE DISC DISEASE COULD BE A POSSIBLE ETIOLOGY. WOULD RECOMMEND MRI OF THE THORACIC SPINE FOR MORE COMPLETE EVALUATION. 3. NO OTHER AREAS OF ABNORMAL ACTIVITY ON PET IMAGING. INCIDENTAL CT FINDINGS ABOVE. TECHNICAL DOCUMENTATION: JOB ID: [id number] [employer]- All Rights Reserved Reading location - IP/workstation name: [email or web address]
== END ==
LOC: RAD 18:45
PROVIDERS: ATTEND Internal Medicine Pulmonary Disease
DX: R91.8 Other nonspecific abnormal finding of lung field (principal); J98.4 Other disorders of lung
CPT/HCPCS: 78815; A9552

== ENCOUNTER 2018-03-03 08:46 | Emergency (ER) | payer MEDICARE, OTHER ==
--- NOTE | 2018-03-03 09:21 | ER Document Report ---
ED Respiratory Problem - General Chief Complaint: Breathing Difficulty Stated Complaint: DIFFICULTY BREATHING Time Seen by Provider: 03/03/18 09:20 Mode of Arrival: Ambulatory Information source: Patient Notes: 77 yo copd, left upper lobe lung cancer is c/o increased sob with exertion since his biopsy was done at [facility] last . Has home oxygen and pulse ox whch is droppng to the high 80's which is abnormal for him. Believes he should be better by now. No fever or chlls. No abd pain. sore at bx site. Drove himself here to ER. TRAVEL OUTSIDE OF THE [place] IN LAST 30 DAYS: No - Related Data Allergies/Adverse Reactions: No Known Allergies Allergy (Verified 03/03/18 09:47) Past Medical History - General Information source: Patient - Social History Smoking Status: Former Smoker Chew tobacco use (# tins/day): No Frequency of alcohol use: Occasional Drug Abuse: None Lives with: Spouse/Significant other Family History: COPD Patient has suicidal ideation: No Patient has homicidal ideation: No - Past Medical History Cardiac Medical History: Reports: Hx Congestive Heart Failure, Hx Coronary Artery Disease, Hx Heart Attack, Hx Hypercholesterolemia, Hx Hypertension Pulmonary Medical History: Reports: Hx COPD, Hx Respiratory Failure - Half a liter continuously Renal/ Medical History: Denies: Hx Peritoneal Dialysis GI Medical History: Reports: Hx Gastroesophageal Reflux Disease, Hx Hiatal Hernia Psychiatric Medical History: Denies: Hx Depression Past Surgical History: Reports: Hx Coronary Artery Bypass Graft, Hx Orthopedic Surgery - 3 ruptured herniated disc in low back and 2 surgeries - Immunizations Immunizations up to date: Yes Hx Diphtheria, Pertussis, Tetanus Vaccination: No Hx Pneumococcal Vaccination: 06/08/16 Review of Systems - Review of Systems Constitutional: No symptoms reported EENT: No symptoms reported Cardiovascular: No symptoms reported Respiratory: See HPI Gastrointestinal: No symptoms reported Genitourinary: No symptoms reported Male Genitourinary: No symptoms reported Musculoskeletal: No symptoms reported Skin: No symptoms reported Hematologic/Lymphatic: No symptoms reported Neurological/Psychological: No symptoms reported Physical Exam - Vital signs Vitals: Temp Pulse Resp BP Pulse Ox 98.1 F 80 22 H 132/68 H 96 03/03/18 08:53 03/03/18 08:53 03/03/18 08:53 03/03/18 08:53 03/03/18 08:53 Interpretation: Normal Notes: 94% while seated and no oxygen. - General General appearance: Appears well, Alert - HEENT Head: Normocephalic, Atraumatic Eyes: Normal Pupils: PERRL - Respiratory Respiratory status: No respiratory distress Chest status: Nontender Breath sounds: Normal Chest palpation: Normal - Cardiovascular Rhythm: Regular Heart sounds: Normal auscultation Murmur: No - Abdominal Inspection: Normal Distension: No distension Bowel sounds: Normal Tenderness: Nontender Organomegaly: No organomegaly - Back Back: Normal, Nontender - Extremities General upper extremity: Normal inspection, Nontender, Normal color, Normal ROM , Normal temperature General lower extremity: Normal inspection, Nontender, Normal color, Normal ROM , Normal temperature, Normal weight bearing. No: Francis's sign - Neurological Neuro grossly intact: Yes Cognition: Normal Orientation: AAOx4 [place] Coma Scale Eye Opening: Spontaneous Janet Coma Scale Verbal: Oriented Janet Coma Scale Motor: Obeys Commands [place] Coma Scale Total: 15 Speech: Normal Motor strength normal: LUE, RUE, LLE, RLE Sensory: Normal - Psychological Associated symptoms: Normal affect, Normal mood - Skin Skin Temperature: Warm Skin Moisture: Dry Skin Color: Normal Course - Re-evaluation Re-evalutation: 03/03/18 10:29 Dr. Coles the radiologist stated that he has a small pneumothorax in the left apex seen on lateral. We discussed whether we need to get a CT of the chest and she recommended to see better view of the size of it. 03/03/18 11:27 Dr. Coles called back and ascending down Phi the PA because the patient's pneumothorax is basically the same as post biopsy but she does not know why he still has a pneumothorax 5 days out. 03/03/18 12:08 Dr. Coles wants to put in a chest tube on CT-guided she will do the consent in the radiology department. She states he does not need any lab work. He does not take any anticoagulants except 81 mg of aspirin per day. He would be able to go home after this was placed. And the patient understands the procedure and was talking with his over the phone about it. 03/03/18 15:13 pt back from radiology. Has 98% 02 sat, to wear 2lpmnc for [address] vazquez, and to have outpt order for repeat cxr tomorrow, pt understands he needs to return for it. pt requesting aleve, tylenol ordered. 03/03/18 15:14 03/03/18 17:[address] Coles and the patient is to come in for a outpatient chest x- ray tomorrow morning at 810 explained this to the patient and his , she is hoping to take the chest tube out tomorrow but he may have to return on for another chest x-ray. He has a appointment with Dr. Vicente in [place] on Friday at 3 PM. He does not need to make an appointment with Dr. Vivar. Pulse ox is 95% without oxygen at this time. His oxygen at home and is also stating that he has not had any neb treatments since this morning and is asking for a DuoNeb at this time. 03/03/18 17:16 2 hour Post insertion chest x-ray at 1700 at the beside was read at [address] Coles and states there is no pneumothorax, COPD, left upper lobe mass. The report states that was completed at 2:30 PM which is erroneous and I called to get that changed. oxygen d/c'd, his sat 94-95%. Ready to go home, at bedside, they understand the instructions. 03/03/18 22:27 - Vital Signs Vital signs: Temp Pulse Resp BP Pulse Ox 98.1 F 80 20 151/65 H 95 03/03/18 08:53 03/03/18 08:53 03/03/18 17:01 03/03/18 17:01 03/03/18 17:01 Discharge - Discharge Clinical Impression: Pneumothorax after biopsy, heimlich chest tube Cancer of left lung Qualifiers: Lung location: unspecified part of lung Qualified Code(s): C34.92 - Malignant neoplasm of unspecified part of left bronchus or lung COPD (chronic obstructive pulmonary disease) Qualifiers: COPD type: unspecified COPD Qualified Code(s): J44.9 - Chronic obstructive pulmonary disease, unspecified Condition: Good Disposition: HOME, SELF-CARE Instructions: Acetaminophen, Pneumothorax ([facility]) Additional Instructions: Wear your oxygen at home to wear your comfortable on the pulse ox is stable as usual Return tomorrow morning at 8:00 for a repeat chest x-ray to see if the chest tube can come out Return to the emergency room tonight for any increased shortness of breath or fever or pain or any concerns See Dr. Vicente 3 PM on Friday as planned Forms: Follow-Up Radiology Testing Referrals: RACHEAL VIVAR MD [ACTIVE STAFF] - Follow up as needed
--- NOTE | 2018-03-03 10:38 | RADIOLOGY REPORT (SQ) ---
EXAM DESCRIPTION: CHEST 2 VIEWS COMPLETED DATE/TIME: 03/03/2018 9:54 am REASON FOR STUDY: short of breath, biopsy COMPARISON: PET-CT 02/08/2018 CT chest 02/03/2018 PA and lateral chest 04/05/2016 EXAM PARAMETERS: NUMBER OF VIEWS: two views TECHNIQUE: Digital Frontal and Lateral radiographic views of the chest acquired. RADIATION DOSE: NA LIMITATIONS: none FINDINGS: LUNGS AND PLEURA: There is a small left apical pneumothorax, outlining the aortic knob on the frontal film, and seen along the lung apex on lateral film. Findings were called to Kimberly sweeney in the emergency room, 1000 hours 02/25/2018. Patient has a left upper lobe spiculated nodule unchanged from PET-CT 02/08/2018. Lungs are hyperinflated and hyperlucent from obstructive disease. No pleural effusions. No acute in filtrates. MEDIASTINUM AND HILAR STRUCTURES: No masses or contour abnormalities. HEART AND VASCULAR STRUCTURES: Heart normal size. No evidence for failure. BONES: No acute findings. HARDWARE: None in the chest. OTHER: No other significant finding. IMPRESSION: Small left apical pneumothorax post lung biopsy at [facility] on 02/26/2018. TECHNICAL DOCUMENTATION: JOB ID: [id number] [employer]- All Rights Reserved Reading location - IP/workstation name: [facility]-RR
--- NOTE | 2018-03-03 11:16 | RADIOLOGY REPORT (SQ) ---
EXAM DESCRIPTION: CT CHEST WITHOUT COMPLETED DATE/TIME: 03/03/2018 10:41 am REASON FOR STUDY: penumo on chest xray COMPARISON: Chest x-ray dated 03/03/[address] scan dated 02/03/2018 TECHNIQUE: CT scan performed of the chest without intravenous contrast. Images reviewed with lung, soft tissue and bone windows. Reconstructed coronal and sagittal MPR images reviewed. All images st ored on PACS. All CT scanners at this facility use dose modulation, iterative reconstruction, and/or weight based d osing when appropriate to reduce radiation dose to as low as reasonably achievable (ALARA). [facility]: Dose Right [facility]: CareDose [facility]: Dose Right [facility]: Teradose 4D [facility]: Smart Technologies RADIATION DOSE: CT Rad equipment meets quality standard of care and radiation dose reduction techniq ues were employed. CTDIvol: 11.3 mGy. DLP: 468 mGy-cm. mGy. LIMITATIONS: No technical limitations. FINDINGS: LUNGS AND PLEURA: An approximately 10% anterior and anterolateral pneumothorax is identifi ed on the left which was present on the previous chest x-ray. The previously described spiculated ma ss in the left upper lobe is again identified. Small focal density is identified in the left lower l zach field most consistent with focal atelectatic changes. The right lung remains clear and well expa nded HILAR AND MEDIASTINAL STRUCTURES: No identified masses or abnormal nodes. No obvious aneurysm. HEART AND VASCULAR STRUCTURES: No aneurysm. Extensive vascular calcifications are identified in the thoracic aorta. No pericardial effusion. UPPER ABDOMEN: Small calcified gallstone is identified. THYROID AND OTHER SOFT TISSUES: No masses. No adenopathy. BONES: No significant finding. HARDWARE: None in the chest. OTHER: No other significant findings. IMPRESSION: Approximately 10% pneumothorax on the left as noted above. The previously described spi culated mass in the left upper lobe is again identified. Other findings as noted above TECHNICAL DOCUMENTATION: JOB ID: [id number] Quality ID # [id number]: Final reports with documentation of one or more dose reduction techniques (e.g., Au tomated exposure control, adjustment of the mA and/or kV according to patient size, use of iterative reconstruction technique) 2010 [employer]- All Rights Reserved Reading location - IP/workstation name: [email or web address]
[2018-03-03] MEDS ORDERED: MIDAZOLAM 2 MG/2 ML INJ ONE (14:00)
[2018-03-03] MEDS ORDERED: FENTANYL CITRATE INJ/PF 100 MCG/2 ML AMPUL ONE (14:00)
[2018-03-03] MEDS ORDERED: LIDOCAINE 1% INJ-PF (10 MG/ML) 30 ML SDV ONE (14:01)
--- NOTE | 2018-03-03 15:01 | RADIOLOGY REPORT (SQ) ---
EXAM DESCRIPTION: CHEST SINGLE VIEW COMPLETED DATE/TIME: 03/03/2018 2:51 pm REASON FOR STUDY: POST CHEST TUBE INSERTION COMPARISON: Chest films 03/03/2018, 0953 hours EXAM PARAMETERS: NUMBER OF VIEWS: One view. TECHNIQUE: Single frontal radiographic view of the chest acquired. RADIATION DOSE: NA LIMITATIONS: None. FINDINGS: LUNGS AND PLEURA: Film is immediately post CT guided Heimlich chest tube placement, left a nterior upper chest. The tube is seen superimposed on the anterior left 4th rib. Left apical pneumo thorax has resolved. The left upper lobe previously biopsied mass is unchanged. No acute infiltrates. No pleural effusion. No right or left pneumothorax. MEDIASTINUM AND HILAR STRUCTURES: No masses. Contour normal. HEART AND VASCULAR STRUCTURES: Heart normal in size. Normal vasculature. BONES: No acute findings. HARDWARE: 8 Telugu left anterior upper chest tube with Heimlich valve OTHER: No other significant finding. IMPRESSION: No pneumothorax post CT-guided Heimlich chest tube placement. Follow-up film in 2 hours TECHNICAL DOCUMENTATION: JOB ID: [id number] [employer]- All Rights Reserved Reading location - IP/workstation name: [facility]
[2018-03-03] MEDS ORDERED: ACETAMINOPHEN 325 MG TABLET PO ONE (15:08)
--- NOTE | 2018-03-03 15:21 | RADIOLOGY REPORT (SQ) ---
EXAM DESCRIPTION: CT INSERTION OF CHEST TUBE COMPLETED DATE/TIME: 03/03/2018 2:50 pm REASON FOR STUDY: PNEUMOTHORAX POST LUNG BIOPSY COMPARISON: Chest films 03/03/2018, PET-CT 02/08/2018 TECHNIQUE: After obtaining informed consent and explaining the risks and benefits of conscious sedat ion,the patient agreed to the procedure. The patient was brought to the CT suite and was placed supin e on the CT gurney. The patient was prepped and draped in the usual sterile fashion . Axial images w ere obtained for targeting of theanterior left pneumothorax. An appropriate access site was selected. IV pain control was administered and physician direction by the registered nurse using 50 micrograms of fentanyl. Physiologic monitoring was provided before, during, and after sedation. The total sedati on time was 0 minutes. Documentation face to face time, the performing proceduralist, spent monitoring the patient: 10minute s. Noncontrasted CT of the liver was performed to localize an approach for the left chest tube placemen t for pneumothorax. A percutaneous site was marked. Time out was performed. After skin prep and local lidocaine for skin and deep tissue anesthesia, a one-stick 8 Jamaican Heimli ch chest tube system was used to access the anterior left chest pleural space air. 300 mL of air was aspirated from the left chest. No immediate postprocedure complications. Total of 3.[address] fluoro was used. 39 CT Fluoroscopic images were obtained and saved to PACS. All CT scanners at this facility use dose modulation, iterative reconstruction, and/or weight based d osing when appropriate to reduce radiation dose to as low as reasonably achievable (ALARA). [facility]: Dose Right [facility]: CareDose [facility]: Dose Right [facility]: Teradose 4D [facility]: [employer] RADIATION DOSE: CT Rad equipment meets quality standard of care and radiation dose reduction techniq ues were employed. CTDIvol: 4.0 - 19.7 mGy. DLP: 1315 mGy-cm. mGy. LIMITATIONS: None. FINDINGS: CT guided liver biopsy as detailed above. IMPRESSION: CT GUIDED LEFT 8 BELARUSIAN CHEST TUBE PLACEMENT TO HEIMLICH VALVE. IMMEDIATE POST PROCEDURE CT IMAGES DEMONSTRATE RESOLUTION OF THE LEFT PNEUMOTHORAX AND AN UNCHANGED L EFT UPPER LOBE MASS. IMMEDIATE POST PROCEDURE CHEST FILM DICTATED SEPARATELY DEMONSTRATED NO PNEUMOTHORAX. PATIENT IS TO HAVE A REPEAT PA CHEST FILM TODAY AT 1700 HOURS. IF THE 1700 HOURS FILM DEMONSTRATES NO PNEUMOTHORAX , PATIENT MAY GO HOME. PATIENT HAS INSTRUCTIONS TO RETURN TOMORROW MORNING 03/04/2018 AT 0800 HOURS FOR REPEAT PA CHEST FILM AND CLINICAL EVALUATION, IF HE GOES HOME THIS EVENING. COMMENT: Patient medication list reviewed:Yes- Quality ID# [id number]:Eligible professional attests to docu menting in the medical record they obtained, updated, or reviewed the patient's current medications.. Quality ID 145: Final reports for procedures using fluoroscopy that document radiation exposure bowen abiel, or exposure time and number of fluorographic images (if radiation exposure indices are not avail able) TECHNICAL DOCUMENTATION: JOB ID: [id number] Quality ID # [id number]: Final reports with documentation of one or more dose reduction techniques (e.g., A utomated exposure control, adjustment of the mA and/or kV according to patient size, use of iterative reconstruction technique) 2010 [employer]- All Rights Reserved Reading location - IP/workstation name: [email or web address]
[2018-03-03 17:02] VITALS: BP 151/65
[2018-03-03] MEDS ORDERED: IPRATROPIUM/ALBUTEROL 0.5-2.5 MG/3 ML AMPUL NEB ONE (17:06)
--- NOTE | 2018-03-03 17:11 | RADIOLOGY REPORT (SQ) ---
EXAM DESCRIPTION: CHEST SINGLE VIEW COMPLETED DATE/TIME: 03/03/2018 2:31 pm REASON FOR STUDY: POST CHEST TUBE INSERTION *2 HOUR FILM* COMPARISON: Chest films earlier today EXAM PARAMETERS: NUMBER OF VIEWS: One view. TECHNIQUE: Single frontal radiographic view of the chest acquired. RADIATION DOSE: NA LIMITATIONS: None. FINDINGS: LUNGS AND PLEURA: A small caliber left anterior chest Heimlich tube is present. There is no left pneumothorax on this 2 hour delayed post chest tube placement film. Again, a left upper lobe nodule is present. Lungs are loosened from obstructive disease. No pleural effusions. No right pneumothorax. MEDIASTINUM AND HILAR STRUCTURES: No masses. Contour normal. HEART AND VASCULAR STRUCTURES: Heart normal in size. Normal vasculature. BONES: No acute findings. HARDWARE: None in the chest. OTHER: Results discussed with Kimberly Velasquez in the emergency room IMPRESSION: No left pneumothorax on delayed post chest tube films. Obstructive lung disease, stable left upper lobe mass. TECHNICAL DOCUMENTATION: JOB ID: [id number] [employer]- All Rights Reserved Reading location - IP/workstation name: [email or web address]
== END 2018-03-03 17:46 | disposition home or self-care (01) ==
LOC: ER 08:46
DX: S27.0XXA Traumatic pneumothorax, initial encounter (principal); X58.XXXA Exposure to other specified factors, initial encounter; C34.92 Malignant neoplasm of unspecified part of left bronchus or lung; J44.9 Chronic obstructive pulmonary disease, unspecified; I50.9 Heart failure, unspecified; E78.00 Pure hypercholesterolemia, unspecified; I11.0 Hypertensive heart disease with heart failure; Z87.891 Personal history of nicotine dependence; Z95.1 Presence of aortocoronary bypass graft; I25.2 Old myocardial infarction
CPT/HCPCS: 94640; 99285; 71046; 71045; 32551; 71250; A9270 ×2; J3010; J3490; J2250; J7620

== ENCOUNTER → 2018-03-09 | Outpatient (CLI) | payer MEDICARE, OTHER ==
[2018-03-09 14:10] LABS: HEMATOCRIT 39.6 % (37.9-51.0); HEMOGLOBIN 13.1 g/dL (13.5-17.0); MEAN CORPUSCULAR HEMOGLOBIN 27.9 pg (27.0-33.4); MEAN CORPUSCULAR VOLUME 85 fl (80-97); PLATELET COUNT 236 10^3/uL (150-450); RED BLOOD COUNT 4.68 10^6/uL (4.35-5.55); WHITE BLOOD COUNT 7.9 10^3/uL (4.0-10.5)
[2018-03-09 14:13] LABS: INTERNATIONAL RATION (INR) 0.94
[2018-03-09 14:14] LABS: PARTIAL THROMBOPLASTIN TIME 29.9 SEC (23.5-35.8)
[2018-03-09 14:34] LABS: ANION GAP 10 (5-19); BLOOD UREA NITROGEN 17 mg/dL (7-20); CALCIUM 9.5 mg/dL (8.4-10.2); CARBON DIOXIDE 33 mmol/L (22-30); CHLORIDE 101 mmol/L (98-107); GLUCOSE 78 mg/dL (75-110); POTASSIUM 4.7 mmol/L (3.6-5.0); SODIUM 143.9 mmol/L (137-145)
== END ==
LOC: OD 13:25
PROVIDERS: ATTEND Internal Medicine Cardiovascular Disease
DX: Z01.810 Encounter for preprocedural cardiovascular examination (principal); Z01.812 Encounter for preprocedural laboratory examination; R07.89 Other chest pain; Z79.01 Long term (current) use of anticoagulants
CPT/HCPCS: 36415; 80048; 85027; 85610; 85730

== ENCOUNTER → 2018-03-16 | Outpatient (CLI) | payer MEDICARE, OTHER ==
--- NOTE | 2018-03-16 09:23 | RADIOLOGY REPORT (SQ) ---
EXAM DESCRIPTION: CHEST PA/LATERAL COMPLETED DATE/TIME: 03/16/2018 9:13 am REASON FOR STUDY: OTHER CHEST PAIN COMPARISON: 03/04/2018 EXAM PARAMETERS: NUMBER OF VIEWS: two views TECHNIQUE: Digital Frontal and Lateral radiographic views of the chest acquired. RADIATION DOSE: NA LIMITATIONS: none FINDINGS: LUNGS AND PLEURA: Persistent left upper lobe previously biopsied nodule. Findings of FLY TIER D, stable. No acute pulmonary consolidation. No pneumothorax or pleural effusion. MEDIASTINUM AND HILAR STRUCTURES: No masses or contour abnormalities. HEART AND VASCULAR STRUCTURES: Heart normal size. No evidence for failure. BONES: No acute findings. HARDWARE: None in the chest. OTHER: No other significant finding. IMPRESSION: 1 No significant interval changes in the appearance of the left upper lobe nodule since the prior examination dated 03/04/2018. 2. Findings of COPD. No acute pulmonary findings. TECHNICAL DOCUMENTATION: JOB ID: [id number] [employer]- All Rights Reserved Reading location - IP/workstation name: [email or web address]
== END ==
LOC: OD 09:00
PROVIDERS: ATTEND Family Medicine
DX: J44.9 Chronic obstructive pulmonary disease, unspecified (principal); R07.89 Other chest pain
CPT/HCPCS: 71046

== ENCOUNTER 2018-03-23 08:25 | Emergency (ER) | payer MEDICARE, OTHER ==
--- NOTE | 2018-03-23 09:35 | ER Document Report ---
ED Neck/Back Problem - General Chief Complaint: Back Pain Stated Complaint: BACK AND RIB PAIN Time Seen by Provider: 03/23/18 09:12 Mode of Arrival: Ambulatory Information source: Patient Notes: 77-year-old male presents to ED for complaint of back pain rib pain for the past week. He states he had a collapsed lung about 2 weeks ago and then he went to his doctor on Friday and they gave him antibiotics for fluid in the lungs. He states his back and low ribs are painful again today. He states he is having a whole lot of trouble getting up and down from the bed. He is alert and oriented respirations regular and unlabored he is able to walk with a steady gait when he is up on his feet. TRAVEL OUTSIDE OF THE [place] IN LAST 30 DAYS: No - HPI Patient complains to provider of: Pain, Upper back, Lower back Onset: Last week Onset: Gradual Timing: Waxing and waning Quality of pain: Sharp Pain Level: 4 Context: Bending Recent injury: No Associated symptoms: None Exacerbated by: Movement of trunk, Sitting position Relieved by: Nothing Similar symptoms previously: Yes Recently seen / treated by doctor: Yes - Related Data Allergies/Adverse Reactions: No Known Allergies Allergy (Verified 03/03/18 09:47) Past Medical History - General Information source: Patient - Social History Smoking Status: Never Smoker Cigarette use (# per day): No Frequency of alcohol use: Social Drug Abuse: None Lives with: Family Family History: COPD Patient has suicidal ideation: No Patient has homicidal ideation: No - Past Medical History Cardiac Medical History: Reports: Hx Congestive Heart Failure, Hx Coronary Artery Disease, Hx Heart Attack, Hx Hypercholesterolemia, Hx Hypertension Pulmonary Medical History: Reports: Hx COPD, Hx Respiratory Failure - Half a liter continuously EENT Medical History: Reports: None Neurological Medical History: Reports: None Endocrine Medical History: Reports: None Renal/ Medical History: Reports: None Malignancy Medical History: Reports None GI Medical History: Reports: Hx Gastroesophageal Reflux Disease, Hx Hiatal Hernia Musculoskeletal Medical History: Reports None Skin Medical History: Reports None Psychiatric Medical History: Reports: None Traumatic Medical History: Reports: None Infectious Medical History: Reports: None Surgical Hx: Negative Past Surgical History: Reports: None, Hx Coronary Artery Bypass Graft, Hx Orthopedic Surgery - 3 ruptured herniated disc in low back and 2 surgeries - Immunizations Immunizations up to date: Yes Hx Diphtheria, Pertussis, Tetanus Vaccination: No Hx Pneumococcal Vaccination: 06/08/16 Review of Systems - Review of Systems Constitutional: No symptoms reported EENT: No symptoms reported Cardiovascular: No symptoms reported Respiratory: Hurts to breathe Gastrointestinal: No symptoms reported Genitourinary: No symptoms reported Male Genitourinary: No symptoms reported Musculoskeletal: Back pain, Muscle pain, Muscle stiffness Skin: No symptoms reported Hematologic/Lymphatic: No symptoms reported Neurological/Psychological: No symptoms reported -: Yes All other systems reviewed and negative Physical Exam - Vital signs Vitals: Temp Pulse Resp BP Pulse Ox 98.0 F 83 20 125/67 94 03/23/18 08:36 03/23/18 08:36 03/23/18 08:36 03/23/18 08:36 03/23/18 08:36 Interpretation: Normal - General General appearance: Appears well, Alert - HEENT Head: Normocephalic, Atraumatic Eyes: Normal Pupils: PERRL - Respiratory Respiratory status: No respiratory distress Chest status: Pain on movement, Pain with cough, Pain with deep breathing Breath sounds: Normal Chest palpation: Normal - Cardiovascular Rhythm: Regular Heart sounds: Normal auscultation Murmur: No - Abdominal Inspection: Normal Distension: No distension Bowel sounds: Normal Tenderness: Nontender Organomegaly: No organomegaly - Back Back: Normal, Tender. No: Deformity/step-off, CVA tenderness, Vertebra tenderness, Scars, Scoliosis, Wounds - Extremities General upper extremity: Normal inspection, Nontender, Normal color, Normal ROM , Normal temperature General lower extremity: Normal inspection, Nontender, Normal color, Normal ROM , Normal temperature, Normal weight bearing. No: Francis's sign - Neurological Neuro grossly intact: Yes Cognition: Normal Orientation: AAOx4 Janet Coma Scale Eye Opening: Spontaneous Janet Coma Scale Verbal: Oriented [place] Coma Scale Motor: Obeys Commands [place] Coma Scale Total: 15 Speech: Normal Motor strength normal: LUE, RUE, LLE, RLE Sensory: Normal - Psychological Associated symptoms: Normal affect, Normal mood - Skin Skin Temperature: Warm Skin Moisture: Dry Skin Color: Normal Course - Re-evaluation Re-evalutation: 03/23/18 22:43 X-rays were discussed with patient and written report of x-rays given the patient to follow-up with his primary doctor. Patient elected not to take ibuprofen or Tylenol in the emergency room he stated he would like some muscle relaxers. Patient was written a prescription for some Flexeril instructed to follow-up with his primary doctor. After performing a Medical Screening Examination, I estimate there is LOW risk for EXPANDING OR RUPTURED ABDOMINAL AORTIC ANEURYSM, CAUDA EQUINA SYNDROME, EPIDURAL MASS LESION, or HERNIATED DISK CAUSING SEVERE SPINAL STENOSIS, thus I consider the discharge disposition reasonable. I have reevaluated this patient multiple times and no significant life threatening changes are noted. The patient and I have discussed the diagnosis and risks, and we agree with discharging home and close follow-up. We also discussed returning to the Emergency Department immediately if new or worsening symptoms occur with the understanding that symptoms and presentations can change. We have discussed the symptoms which are most concerning (e.g., saddle anesthesia, urinary or bowel incontinence or retention, changing or worsening pain) that necessitate immediate return. - Vital Signs Vital signs: Temp Pulse Resp BP Pulse Ox 97.8 F 65 18 117/54 L 95 03/23/18 11:16 03/23/18 11:16 03/23/18 11:16 03/23/18 11:16 03/23/18 11:16 - Diagnostic Test Radiology reviewed: Image reviewed, Reports reviewed Discharge - Discharge Clinical Impression: Chronic back pain Qualifiers: Back pain location: low back pain Back pain laterality: bilateral Sciatica presence: without sciatica Qualified Code(s): M54.5 - Low back pain Condition: Stable Disposition: HOME, SELF-CARE Instructions: Family Physicians / Practices Additional Instructions: LOW BACK PAIN: Three out of every four people will have an episode of disabling back pain during their lifetime. Most commonly the pain is due to straining of the muscles and ligaments in the low back. Usual treatment includes: (1) Rest on a firm surface. Avoid lying on your stomach. (2) Ice pack the painful area. After a few days, gentle heat may be used intermittently to relax the area, or ice packs can be continued. (3) Medication may be needed -- muscle relaxers and antiinflammatory medicines are commonly used. (4) As the back improves, exercises are prescribed to strengthen the back and abdominal muscles. Your doctor will advise you on the proper care for your back at each stage in your recovery. You may be better in a few days -- or healing may take several weeks. If new symptoms of a "herniated disc" (radiation of pain, numbness, or tingling down the back of the leg or weakness in the leg) occur, you should be re-examined. Further testing may be necessary. Chronic Pain Control Stress, inactivity, and depression make pain more severe regardless of the cause of the pain. Stress and poor physical condition can cause pain such as headaches and backache. Relaxation: Rest in a quiet place with your eyes closed for 20 minutes twice daily. Concentrate on a pleasant image, or simply "feel" your breathing. Clear your mind. Stress management: Deal with your "stressors." Either take action, or eliminate the stressor from your life. Don't let things hang over you. Accept those things you can't change. Nutrition: Eat small, balanced meals -- don't skip, don't overeat. Meals should be high-carbohydrate, low-sugar, low-fat. Exercise: Exercise helps painful conditions and eases stress. Get 30 minutes of moderate exercise, five days a week. Do an activity that does not flare your pain. Precautions: Pain which continues to disrupt daily activities, or which changes in nature, requires a medical evaluation. Pain Clinic referral is available. We do not manage chronic pain in the Emergency Department. 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 We do not provide repeated medication management of chronic painful conditions. If you wish, we can provide the name of local pain management physicians. MUSCLE RELAXERS: Muscle relaxing medications are usually prescribed for acute muscle spasm or injury to the neck and back. They are often combined with antiinflammatory pain medication for increased relief. You may stop the muscle relaxer when the pain and stiffness have improved. Start the medication again if spasms recur. Muscle relaxers may cause drowsiness, especially with the first dose. Do not operate machinery or drive while under the effects of the medication. Most muscle relaxers last up to 24 hours. Do not combine the medication with alcohol. ICE PACKS: Apply ice packs frequently against the painful area. Many different schedules are recommended, such as "20 minutes on, 20 minutes off" or "one hour ice, two hours rest." If you need to work, you may need to go longer between ice treatments. You should plan to have the area ice packed AT LEAST one fourth of the time. The ice should be applied over the wrap, tape, or splint, or over a layer of cloth -- not directly against the skin. Some ice bags have a built-in cloth and can be put directly on the skin. WARM PACKS: After approximately two days, apply gentle heat (such as a heating pad or hot water bottle) for about 20 to 30 minutes about every two hours -- at least four times daily. Warmth and elevation will help you make a more rapid recovery , and will ease the pain considerably. Do not use HOT heat, and never apply heat for longer than 30 minutes. The continuous heat can invisibly damage skin and muscles -- even when no burn is seen on the surface. Damaged muscles can make you MORE sore. Stretching Exercises for the Back The physician has recommended that you begin stretching exercises for your back. These are often used even while the back is painful. However, you should notify the physician if the activities seem to increase your pain. PELVIC TILT: Lie flat on your back with knees bent. Tighten your stomach and buttock muscles so it flattens your lower back against the floor. Hold 10 seconds. Repeat 10 times, twice daily. KNEE RAISE: Lying on the back with knees bent, raise one knee to your chest, then the other. Hold both knees against the chest 10 seconds, then lower one knee at a time. Repeat 10 times, twice daily. PARTIAL TRUNK RAISE: Lie face down, arms at your sides. Keeping your waist on the floor, use your arms raise your chest up. Support yourself on your elbows for 30 seconds. Repeat twice daily, increasing the time to two minutes as you recover. FOLLOW-UP CARE: If you have been referred to a physician for follow-up care, call the physician s office for an appointment as you were instructed or within the next two days. If you experience worsening or a significant change in your symptoms, notify the physician immediately or return to the Emergency Department at any time for re-evaluation. Prescriptions: Cyclobenzaprine HCl [Flexeril 10 mg Tablet] 10 mg PO TIDP PRN #15 tab PRN Reason: Referrals: KALEN JEAN-BAPTISTE DO [Primary Care Provider] - Follow up as needed
--- NOTE | 2018-03-23 10:32 | RADIOLOGY REPORT (SQ) ---
EXAM DESCRIPTION: RIBS BILATERAL W/PA CXR COMPLETED DATE/TIME: 03/23/2018 10:16 am REASON FOR STUDY: pain ribs and low back COMPARISON: Chest x-ray dated 03/16/2018 TECHNIQUE: Frontal view of the chest and additional views of the right and left ribs acquired. NUMBER OF VIEWS: 7 views LIMITATIONS: None. FINDINGS: FRONTAL CXR: The previously described previously biopsied left upper lobe nodule is again identified and appears essentially unchanged. Remaining lung betancourt are clear. No pneumothorax is s een. RIBS: No displaced rib fractures. No lytic or blastic bony lesions. OTHER: No other significant finding. IMPRESSION: NO PNEUMOTHORAX. NO DISPLACED RIB FRACTURES. COMMENT: SITE OF TRAUMA/COMPLAINT MARKED/STAMP COMPLETED: No TECHNICAL DOCUMENTATION: JOB ID: [id number] [employer]- All Rights Reserved Reading location - IP/workstation name: [email or web address]
--- NOTE | 2018-03-23 10:35 | RADIOLOGY REPORT (SQ) ---
EXAM DESCRIPTION: L SPINE WHOLE COMPLETED DATE/TIME: 03/23/2018 10:16 am REASON FOR STUDY: pain ribs and low back COMPARISON: September 2011 NUMBER OF VIEWS: Five views including obliques. TECHNIQUE: AP, lateral, oblique, and sacral radiographic images acquired of the lumbar spine. LIMITATIONS: None. FINDINGS: MINERALIZATION: Normal. SEGMENTATION: Normal. No transitional anatomy. ALIGNMENT: Lumbar scoliosis convex to the right is identified. VERTEBRAE: Maintained height. No fracture or worrisome bone lesion. DISCS: Multilevel disc space narrowing with osteophytes. POSTERIOR ELEMENTS: Pedicles and facets are intact. No pars defect or posterior arch defects. Facet arthropathy is present. HARDWARE: None in the spine. PARASPINAL SOFT TISSUES: Normal. PELVIS: Intact as visualized. No fractures or worrisome bone lesions. SI joints intact. OTHER: Extensive vascular calcifications are identified in the abdominal aorta and iliac vessels IMPRESSION: SPONDYLOSIS WITHOUT BONE LESION OR FRACTURE. TECHNICAL DOCUMENTATION: JOB ID: [id number] [employer]- All Rights Reserved Reading location - IP/workstation name: [email or web address]
[2018-03-23 11:17] VITALS: BP 117/54
== END 2018-03-23 11:17 | disposition home or self-care (01) ==
LOC: ER 08:25
DX: M54.5 Low back pain (principal); G89.29 Other chronic pain; R07.81 Pleurodynia; R07.1 Chest pain on breathing; Z87.09 Personal history of other diseases of the respiratory system; J44.9 Chronic obstructive pulmonary disease, unspecified; Z95.1 Presence of aortocoronary bypass graft; Z98.890 Other specified postprocedural states
CPT/HCPCS: 71111; 72110; 99283

== ENCOUNTER → 2018-04-01 | Outpatient (CLI) | payer MEDICARE, OTHER ==
--- NOTE | 2018-04-01 11:12 | RADIOLOGY REPORT (SQ) ---
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 TECHNIQUE: Sagittal and Axial imaging includes T1, T2, STIR and gradient echo sequences. T1 post ga dolinium sequences. CONTRAST TYPE AND DOSE: 15 mL Prohance. RENAL FUNCTION: GFR > 60. LIMITATIONS: Motion. FINDINGS: *There is abnormal decreased T1 signal and abnormal enhancement in T2 tubal body which spares the ped icle. Area was hypermetabolic on recent PET-CT scan. No significant retropulsion. No other lesions in the thoracic spine. There is some equivocal mild height loss. Small central disc herniations at T6-7 and T8-9 without cord compression. Cord signal is normal. No paraspinal mass. IMPRESSION: Suspected metastatic lesion T9 with equivocal height loss. Interventional radiology shayy l be consulted to determine if appropriate for CT-guided biopsy and kyphoplasty at the same time. TECHNICAL DOCUMENTATION: JOB ID: [id number] [employer]- All Rights Reserved Reading location - IP/workstation name: [email or web address]
== END ==
LOC: RAD 07:01
PROVIDERS: ATTEND Internal Medicine
DX: C34.12 Malignant neoplasm of upper lobe, left bronchus or lung (principal); C79.51 Secondary malignant neoplasm of bone
CPT/HCPCS: 72157; A9576

== ENCOUNTER → 2018-05-04 | Outpatient (CLI) | payer MEDICARE, OTHER ==
--- NOTE | 2018-05-04 14:09 | RADIOLOGY REPORT (SQ) ---
EXAM DESCRIPTION: CHEST PA/LATERAL COMPLETED DATE/TIME: 05/04/2018 1:36 pm REASON FOR STUDY: COPD COMPARISON: 03/16/2018. EXAM PARAMETERS: NUMBER OF VIEWS: two views TECHNIQUE: Digital Frontal and Lateral radiographic views of the chest acquired. RADIATION DOSE: NA LIMITATIONS: none FINDINGS: LUNGS AND PLEURA: The slightly ill-defined parenchymal nodular opacity in the left upper lung zone is unchanged. The right lung is stable in appearance. No pneumothorax or pleural effusion . Findings of COPD. MEDIASTINUM AND HILAR STRUCTURES: No masses or contour abnormalities. HEART AND VASCULAR STRUCTURES: Heart normal size. No evidence for failure. BONES: The osseous structures are stable in appearance. HARDWARE: None in the chest. OTHER: No other significant finding. IMPRESSION: 1 The slightly ill-defined parenchymal nodular opacity in the left upper lung zone is un changed. Correlation suggested. 2 Findings of COPD. No acute findings. TECHNICAL DOCUMENTATION: JOB ID: [id number] [employer]- All Rights Reserved Reading location - IP/workstation name: [email or web address]
[2018-05-04 14:28] LABS: ABSOLUTE LYMPHOCYTES (AUTO) 0.7 10^3/uL (0.5-4.7); ABSOLUTE MONOCYTES (AUTO) 0.3 10^3/uL (0.1-1.4); ABSOLUTE NEUT (AUTO) 4.6 10^3/uL (1.7-8.2); BASOPHILS % (AUTO) 0.2 % (0-2); EOSINOPHILS % (AUTO) 0.1 % (0-6); HEMATOCRIT 36.1 % (37.9-51.0); HEMOGLOBIN 12.2 g/dL (13.5-17.0); LYMPHOCYTES % (AUTO) 11.7 % (13-45); MEAN CORPUSCULAR HEMOGLOBIN 28.4 pg (27.0-33.4); MEAN CORPUSCULAR HGB CONC 33.7 g/dL (32.0-36.0); MEAN CORPUSCULAR VOLUME 84 fl (80-97); MONOCYTES % (AUTO) 5.8 % (3-13); PLATELET COUNT 198 10^3/uL (150-450); RED BLOOD COUNT 4.29 10^6/uL (4.35-5.55); RED CELL DISTRIBUTION WIDTH 15.3 % (11.5-14.0); SEGMENTED NEUTROPHILS % (AUTO) 82.2 % (42-78); TOTAL CELLS COUNTED % (AUTO) 100 %; WHITE BLOOD COUNT 5.6 10^3/uL (4.0-10.5)
== END ==
LOC: OD 13:17
PROVIDERS: ATTEND Internal Medicine Pulmonary Disease
DX: J44.9 Chronic obstructive pulmonary disease, unspecified (principal)
CPT/HCPCS: 36415; 71046; 85025; 87070; 87077; 87186; 87205

== ENCOUNTER → 2018-06-12 | Outpatient (CLI) | payer MEDICARE, OTHER ==
--- NOTE | 2018-06-12 12:00 | RADIOLOGY REPORT (SQ) ---
EXAM DESCRIPTION: KUB COMPLETED DATE/TIME: 06/12/2018 10:48 am REASON FOR STUDY: MALIGNANT NEOPLASM OF UPPER LOBE, LEFT BRONCHUS OR LUNG C34.12 MALIGNANT NEOPLASM OF UPPER LOBE, LEFT BRONCHUS OR JOSLYN M54.5 LOW BACK PAIN COMPARISON: None. NUMBER OF VIEWS: One view. TECHNIQUE: Supine radiographic image of the abdomen acquired. LIMITATIONS: None. FINDINGS: BOWEL GAS PATTERN: Scattered gas throughout the colon to the rectum. Nonspecific bowel ga s pattern. CALCIFICATIONS: Atherosclerotic change of the abdominal aorta and iliac vessels. SOFT TISSUES: No gross mass or suggestion of organomegaly. HARDWARE: None in the abdomen. BONES: No acute fracture. Degenerative sclerosis left SI joint. Lumbar spondylosis. OTHER: No other significant finding. IMPRESSION: NONSPECIFIC BOWEL-GAS PATTERN. TECHNICAL DOCUMENTATION: JOB ID: [id number] SC-69 2010 [employer]- All Rights Reserved Reading location - IP/workstation name: [email or web address]
--- NOTE | 2018-06-12 14:45 | RADIOLOGY REPORT (SQ) ---
EXAM DESCRIPTION: LUMBAR SPINE COMPLETE COMPLETED DATE/TIME: 06/12/2018 10:48 am REASON FOR STUDY: LOW BACK PAIN C34.12 MALIGNANT NEOPLASM OF UPPER LOBE, LEFT BRONCHUS OR JOSLYN M54.5 LOW BACK PAIN COMPARISON: 03/23/2018 NUMBER OF VIEWS: Five views including obliques. TECHNIQUE: AP, lateral, oblique, and sacral radiographic images acquired of the lumbar spine. LIMITATIONS: None. FINDINGS: MINERALIZATION: Normal. SEGMENTATION: Normal. No transitional anatomy. ALIGNMENT: Minimal scoliosis. VERTEBRAE: Maintained height. No fracture or worrisome bone lesion. DISCS: Disc spaces are narrowed from L1-S1 except that the L2-3 disc space is fairly well maintained. Prominent marginal osteophytes are present at multiple levels. POSTERIOR ELEMENTS: Hypertrophic facet changes are present at multiple levels. HARDWARE: None in the spine. PARASPINAL SOFT TISSUES: Normal. PELVIS: Intact as visualized. No fractures or worrisome bone lesions. SI joints intact. OTHER: No other significant finding. IMPRESSION: Minimal scoliosis. Degenerative disc disease. Spondylosis. Facet arthropathy. TECHNICAL DOCUMENTATION: JOB ID: [id number] [employer]- All Rights Reserved Reading location - IP/workstation name: [email or web address]
== END ==
LOC: OD 10:24
PROVIDERS: ATTEND Family Medicine
DX: C34.12 Malignant neoplasm of upper lobe, left bronchus or lung (principal); M54.5 Low back pain
CPT/HCPCS: 72110; 74018

== ENCOUNTER → 2018-06-25 | Outpatient (CLI) | payer MEDICARE, OTHER ==
--- NOTE | 2018-06-25 10:03 | RADIOLOGY REPORT (SQ) ---
EXAM DESCRIPTION: CT CHEST WITH COMPLETED DATE/TIME: 06/25/2018 9:46 am REASON FOR STUDY: LUNG CANCER C34.12 MALIGNANT NEOPLASM OF UPPER LOBE, LEFT BRONCHUS OR JOSLYN COMPARISON: 03/03/2018 TECHNIQUE: CT scan of the chest performed using helical scanning technique with dynamic intravenous contrast injection. Images reviewed with lung, soft tissue and bone windows. Reconstructed coronal and sagittal MPR and MIP images reviewed. All images stored on PACS. All CT scanners at this facility use dose modulation, iterative reconstruction, and/or weight based d osing when appropriate to reduce radiation dose to as low as reasonably achievable (ALARA). [facility]: Dose Right [facility]: CareDose [facility]: Dose Right [facility]: Teradose 4D [facility]: Endymed CONTRAST TYPE AND DOSE: See separate report of the same date. RENAL FUNCTION: See separate report of the same date. RADIATION DOSE: . LIMITATIONS: None. FINDINGS: LUNGS AND PLEURA: Spiculated left upper lobe mass previously 2.7 x 3.2 cm, now 3.9 x 3.7 c m. There is a new cavitary nodule in the more posterior left upper lobe measuring 1.5 x 2.4 cm. No effusions. HILAR AND MEDIASTINAL STRUCTURES: Stable left hilar node measuring about 1 cm in short axis. HEART AND VASCULAR STRUCTURES: No aneurysm or dissection. No central pulmonary emboli. No pericardi al effusion. HARDWARE: None in the chest. UPPER ABDOMEN: See separate report of the CT of the abdomen. THYROID AND OTHER SOFT TISSUES: No masses. No adenopathy. BONES: No acute findings. OTHER: No other significant finding. IMPRESSION: Disease progression in the left upper lobe. TECHNICAL DOCUMENTATION: JOB ID: [id number] Quality ID # [id number]: Final reports with documentation of one or more dose reduction techniques (e.g., Au tomated exposure control, adjustment of the mA and/or kV according to patient size, use of iterative reconstruction technique) 2010 [employer]- All Rights Reserved Reading location - IP/workstation name: [email or web address]
--- NOTE | 2018-06-25 10:10 | RADIOLOGY REPORT (SQ) ---
EXAM DESCRIPTION: CT ABD/PELVIS WITH IV ONLY COMPLETED DATE/TIME: 06/25/2018 9:46 am REASON FOR STUDY: LUNG CANCER C34.12 MALIGNANT NEOPLASM OF UPPER LOBE, LEFT BRONCHUS OR JOSLYN COMPARISON: PET-CT 02/08/2018. TECHNIQUE: CT scan of the abdomen and pelvis performed using helical scanning technique with dynamic intravenous contrast injection. No oral contrast. Images reviewed with lung, soft tissue, and bone windows. Reconstructed coronal and sagittal MPR images reviewed. Delayed images for evaluation of the urinary system also acquired. All images stored on PACS. All CT scanners at this facility use dose modulation, iterative reconstruction, and/or weight based d osing when appropriate to reduce radiation dose to as low as reasonably achievable (ALARA). [facility]: Dose Right [facility]: CareDose [facility]: Dose Right [facility]: Teradose 4D [facility]: Seakeeper CONTRAST TYPE AND DOSE: contrast/concentration: Isovue 350.00 mg/ml; Total Contrast Delivered: 84.0 ml; Total Saline Delivered: 69.0 ml RENAL FUNCTION: BUN 23 creatinine 0.9 RADIATION DOSE: CT Rad equipment meets quality standard of care and radiation dose reduction techniq ues were employed. CTDIvol: 6.4 - 9.6 mGy. DLP: 1221 mGy-cm.. LIMITATIONS: None. FINDINGS: LOWER CHEST: See separate report of the CT of the chest. LIVER: 11 mm low-density lesion segment 7. SPLEEN: Normal size. No focal lesions. PANCREAS: No masses. No significant calcifications. No adjacent inflammation or peripancreatic fluid collections. Pancreatic duct not dilated. GALLBLADDER: Gallstones. No inflammatory changes to suggest cholecystitis. ADRENAL GLANDS: No significant masses or asymmetry. RIGHT KIDNEY AND URETER: No solid masses. No significant calcifications. No hydronephrosis or hyd roureter. LEFT KIDNEY AND URETER: No solid masses. No significant calcifications. No hydronephrosis or hydr oureter. AORTA AND VESSELS: Patent aortobifemoral bypass graft. RETROPERITONEUM: No retroperitoneal adenopathy, hemorrhage or masses. BOWEL AND PERITONEAL CAVITY: No masses or inflammatory changes. No free fluid or peritoneal masses. APPENDIX: Normal. PELVIS: No mass. No free fluid. Normal bladder. ABDOMINAL WALL: No masses. No hernias. BONES: No acute findings. OTHER: No other significant finding. IMPRESSION: New small liver lesion suspicious for metastatic disease TECHNICAL DOCUMENTATION: JOB ID: [id number] Quality ID # [id number]: Final reports with documentation of one or more dose reduction techniques (e.g., Au tomated exposure control, adjustment of the mA and/or kV according to patient size, use of iterative reconstruction technique) 2010 [employer]- All Rights Reserved Reading location - IP/workstation name: [email or web address]
== END ==
LOC: RAD 08:46
PROVIDERS: ATTEND Internal Medicine
DX: C34.12 Malignant neoplasm of upper lobe, left bronchus or lung (principal)
CPT/HCPCS: 71260; 74177

== ENCOUNTER → 2018-07-15 | Outpatient (CLI) | payer MEDICARE, OTHER ==
--- NOTE | 2018-07-15 13:39 | RADIOLOGY REPORT (SQ) ---
EXAM DESCRIPTION: NM WHOLE BODY BONE SCAN COMPLETED DATE/TIME: 07/15/2018 12:28 pm REASON FOR STUDY: MALIGNANT NEOPLASM OF UPPER LOBE, LEFT BRONCHUS OR LUNG C34.12 MALIGNANT NEOPLASM OF UPPER LOBE, LEFT BRONCHUS OR JOSLYN COMPARISON: CT the chest abdomen pelvis 06/25/2018 RADIONUCLIDE AND DOSE: 20 millicuries Tc99m HDP. The route of agent administration: Intravenous. ADDITIONAL DRUGS AND DOSES: None. TECHNIQUE: Routine delayed images at 3 hours post radionuclide injection acquired of the bony skelet on including anterior and posterior whole-body projections and additional focused images as needed. LIMITATIONS: None. FINDINGS: BONES: There are areas of increased uptake in the mid to lower thoracic spine. There is a tiny focus of increased uptake in the left 9th rib. There is small focus of activity where the tip of the scapula on the left overlies the ribs. There is a small focus of activity in the left sacrum. KIDNEYS: Symmetric excretion without obstruction. OTHER: No other significant finding. IMPRESSION: There is abnormal uptake in the 7th and 9th thoracic vertebrae. Compression changes are seen at T9 with kyphoplasty. No abnormality is seen on the CT at T7. There is fact, together with the other small areas of abnormal uptake that are described, is such that metastatic disease cannot b e excluded. COMMENT: Quality measure 147: Current bone scan is compared with any available plain radiographs, p rior bone scans, and CT/MRI. TECHNICAL DOCUMENTATION: JOB ID: [id number] [employer]- All Rights Reserved Reading location - IP/workstation name: [email or web address]
== END ==
LOC: RAD 08:20
PROVIDERS: ATTEND Radiology Radiation Oncology
DX: C34.12 Malignant neoplasm of upper lobe, left bronchus or lung (principal); C78.7 Secondary malignant neoplasm of liver and intrahepatic bile duct; C79.51 Secondary malignant neoplasm of bone
CPT/HCPCS: 78306; A9561; Q9969